=== PATIENT | male | born 1940 | race Caucasian/White ===

== ENCOUNTER 2018-02-27 11:12 | Outpatient (RCR) | payer MEDICARE, SELFPAY ==
--- NOTE | 2018-02-27 12:00 | PT.OTN ---
Current Diagnoses Dizziness and giddiness (02/27/18) Transition note: On February 20, 2018 our therapy services consisting of Speech, Occupational, and Physical Therapy transitioned from the [employer] electronic documentation system to a new [facility] [facility] electronic documentation system.?? All documentation prior to February 20 can be found under [facility] saved data. From February 20 forward all medical record documentation will be in [facility]1.
--- NOTE | 2018-02-28 17:02 | PT.OTN ---
Current Diagnoses Dizziness and giddiness (02/27/18) Physical Therapy Treatment Note PT-OP-A Visit Information Start: 02/27/18 07:31 Freq: Status: Active Protocol: Document 02/27/18 11:15 AMB (Rec: 02/28/18 17:02 AMB [email or web address]) Out-Patient Physical Therapy Visit Information Visit Information Visit Type Treatment Note Visit Note G codes 12/30 Visit Start Time 11:15 Visit Stop Time 12:00 Total Visit Minutes 45 Visit Number 3 Evaluation Information Evaluation Date 02/14/18 PT-OP-C Subjective Start: 02/27/18 07:31 Freq: Status: Active Protocol: Document 02/27/18 11:15 AMB (Rec: 02/28/18 17:02 AMB [email or web address]) OP-PT Subjective Patient Comments Patient Reported Progress Same PT-OP-Q Treatments Start: 02/27/18 07:31 Freq: Status: Active Protocol: Document 02/27/18 11:15 AMB (Rec: 02/28/18 17:02 AMB [email or web address]) Neuro Re-Education Treatment Other Activities 4 Details R Dilip Reps/Duration 8 minutes 3 Details VOR 1 Reps/Duration 7 minutes 2 Details Stride stance EO HT Reps/Duration 5 minutes 1 Details Quinn Daroff Reps/Duration 3 each side PT-OP-T Assessment and Plan Start: 02/27/18 07:31 Freq: Status: Active Protocol: Document 02/27/18 11:15 AMB (Rec: 02/28/18 17:02 AMB [email or web address]) Physical Therapy Assessment Assessment Summary Assessment Pt without nystagmus or dizziness with positional testing. Continues to have dizziness with head turns ( even in seated) and with coming up from a supine position. Continues to describe dizziness as a feeling of being lightheaded and off balance. Physical Therapy Plan Next Visit Focus/Plan Next Visit Plan Pt on hold until visit with PCP later this month. He will continue with his HEP independently until that time and then call this clinic to see if he wants to come back
--- NOTE | 2018-04-03 08:58 | PT.OPDS ---
Current Diagnoses Dizziness and giddiness (02/27/18) Provider Visit Care Team Role Provider Type Aristeo Cárdenas MD Attending Provider Physician Family Provider Primary Care Provider Specialty: Family Practice Address: [facility] [place], [address] Email: [email or web address] Discharge Summary PT-OP-C Subjective Start: 02/27/18 07:31 Freq: Status: Active Protocol: Document 02/27/18 11:15 AMB (Rec: 02/28/18 17:02 AMB [email or web address]) OP-PT Subjective Patient Comments Patient Reported Progress Same PT-OP-T Assessment and Plan Start: 02/27/18 07:31 Freq: Status: Active Protocol: Document 02/27/18 11:15 AMB (Rec: 02/28/18 17:02 AMB [email or web address]) Physical Therapy Assessment Assessment Summary Assessment Pt without nystagmus or dizziness with positional testing. Continues to have dizziness with head turns ( even in seated) and with coming up from a supine position. Continues to describe dizziness as a feeling of being lightheaded and off balance. Physical Therapy Plan Next Visit Focus/Plan Next Visit Plan Discharge, patient did not notice change with HEP. He returned to his PCP who put him on meclizine which he reports is helping. The patient was seen for 3 visits of physical therapy. He never showed nystagmus, although an accurate [place]-Hallpike position was challenging due to his decreased cervical ROM.
== END 2018-04-13 13:21 ==
LOC: PHYS 11:12
PROVIDERS: Family Provider Family Medicine; PCP Family Medicine; Visit Provider Family Medicine
DX: R42 Dizziness and giddiness (principal)
CPT/HCPCS: 97112

== ENCOUNTER 2019-02-07 15:44 | Outpatient (RCR) | payer MEDICARE, SELFPAY ==
--- NOTE | 2019-02-07 17:40 | PT.OIE ---
Current Diagnoses Unspecified abnormalities of gait and mobility (02/07/19) Dizziness and giddiness (02/07/19) Provider Visit Care Team Role Provider Type Aristeo Cárdenas MD Primary Care Provider Physician Specialty: Family Practice Address: [address] [place], [address] Email: 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 Pt reports episodes last a few seconds, only when turning his head. Pt does not complain of positional symptoms, only if he is shaking his head, turning his neck to look at something, or other actions that cause [id number] movement. Pt reports he had previously been seen at this clinic when his symptoms began one year ago, but felt like it was not helping following his second visit, and stopped coming. Since that time, pt has undergone a VNG, which was largely negative, but did uncover multifactorial disequilibrium and potential cervical vertigo. Pt is currently using six tablets of Meclizine daily to manage his symptoms. Prior Treatments and Tests VNG Treatment Goals Patient/Caregiver Goals Ptt would like to stop his dizziness with head movement Prior Functional Status Baseline Function- ADL's Independent Baseline Function- Mobility Independent Current Functional Impairments (Reported) Functional Limitations- ADL's c/o dizziness with head turns PT-OP-C Subjective Start: 02/08/19 13:13 Freq: Status: Active Protocol: Document 02/07/19 16:00 DCW (Rec: 02/08/19 13:38 DCW [id number]) Patient Questionnaires ABC- Activity Specific Balance Confidence Scale ABC Score 48.13% ABC Functional Impairment 40 to <60% Impaired (Score 41- 60) Dizziness Handicap Inventory DHI Score 48% DHI Functional Impairment 40 to 59% Impaired (Score 40- 59) PT-OP-D Balance Start: 02/08/19 13:13 Freq: Status: Active Protocol: Document 02/07/19 16:00 DCW (Rec: 02/08/19 13:38 DCW [id number]) OP-PT Balance Assessment Sitting Balance Static Sitting Balance Ability Normal Dynamic Sitting Balance Ability Normal Standing Balance Static Standing Balance Ability Good Dynamic Standing Balance Ability Fair Balance Tests CTSIB CTSIB Position 1 Mild Sway CTSIB Position 2 Fall Reaction CTSIB Position 3 Fall Reaction CTSIB Position 4 Moderate Sway CTSIB Position 5 Fall Reaction CTSIB Position 6 Fall Reaction Jaramillo Fall Scale Copyright Permission Ella JM, Ella RM, Edgar SJ. Development of a scale to identify the fall- prone patient. Can J Aging 1989;8;366-7. Cam Jaramillo (2009). Preventing patient falls. (2nd ed). [place]: Clement. PT-OP-O Vestibular Start: 02/08/19 13:13 Freq: Status: Active Protocol: Document 02/07/19 16:00 DCW (Rec: 02/08/19 13:38 DCW [id number]) Vestibular Assessment Screening Tests Vestibular Artery Screen Negative Sharp-Judie Test Negative Visual Testing Gaze Evoked Nystagmus With Fixation Negative Gaze Evoked Nystagmus Without Fixation Negative Cover/Uncover Test WNL Suraj String Test WNL DVA (Line Degradation) 5 Head Shake Negative Spontaneous Nystagmus Negative Positional Testing [place]-Hallpike Negative Left Negative Right Rolling Test Negative Left Negative Right Comments Vestibular Comments Cervicogenic Dizzingess test on rotation stool - negative PT-OP-T Assessment and Plan Start: 02/08/19 13:13 Freq: Status: Active Protocol: Document 02/07/19 16:00 DCW (Rec: 02/08/19 13:38 DCW [id number]) Physical Therapy Assessment Rehab Potential Rehabilitation Potential Fair Evaluation Complexity Number of Personal Factors/Comorbidities 1-2 Number of Body Systems Impaired 4 or More Clinical Presentation at Evaluation Unstable Impairments Impairments Balance Vestibular Assessment Summary Assessment Pt's vestibular examination was largely negative. Pt had an in-depth VNG prior to his assessment here, which was again largely negative, suggesting multifactoral imbalance and possible cervical dizziness. No cervical dizziness could be reproduced in the clinic today . Pt's only real positive test was a 5 line degradation of his DVA, however by itself, this does not say much. At the end of the session, pt was informed that although his vestibular testing was negative, he did display some concerns with his poor balance , particularly with his eyes closed or visual conflict causing an almost immediate fall reaction. Pt reports that he is not interested in working on his balance at this time, and if there is no specific treatment for his dizziness he experiences with head movement, he would prefer not to come to therapy at this time. Pt noted he would work on strengthening his legs by himself, and if he gets to the point where he feels more comfortable walking, then he will rethink about attending therapy at a later date. Pt will be discharged from skilled therapy at this time. Physical Therapy Plan Frequency and Duration Duration of Treatment 1 day Plan of Care Start Date 02/07/19 Plan of Care End Date 02/08/19 Discharge Physical Therapy Discharge Reasons Patient Request Next Visit Focus/Plan Next Note Type Discharge Summary Next Visit Plan No further PT at this time, per patient request
--- NOTE | 2019-02-07 17:45 | PT.OPPOC ---
Current Diagnoses Unspecified abnormalities of gait and mobility (02/07/19) Dizziness and giddiness (02/07/19) Provider Visit Care Team Role Provider Type Aristeo Cárdenas MD Primary Care Provider Physician Specialty: Family Practice Address: [address] [place], [address] Email: [email or web address] Fredy Howard MD Attending Provider Physician Specialty: Ear, Nose, Throat Address: [address] [place] [address] [place], [address] Email: Plan Of Care PT-OP-T Assessment and Plan Start: 02/08/19 13:13 Freq: Status: Active Protocol: Document 02/07/19 16:00 DCW (Rec: 02/08/19 13:38 DCW [id number]) Physical Therapy Assessment Rehab Potential Rehabilitation Potential Fair Evaluation Complexity Number of Personal Factors/Comorbidities 1-2 Number of Body Systems Impaired 4 or More Clinical Presentation at Evaluation Unstable Impairments Impairments Balance Vestibular Assessment Summary Assessment Pt's vestibular examination was largely negative. Pt had an in-depth VNG prior to his assessment here, which was again largely negative, suggesting multifactoral imbalance and possible cervical dizziness. No cervical dizziness could be reproduced in the clinic today . Pt's only real positive test was a 5 line degradation of his DVA, however by itself, this does not say much. At the end of the session, pt was informed that although his vestibular testing was negative, he did display some concerns with his poor balance , particularly with his eyes closed or visual conflict causing an almost immediate fall reaction. Pt reports that he is not interested in working on his balance at this time, and if there is no specific treatment for his dizziness he experiences with head movement, he would prefer not to come to therapy at this time. Pt noted he would work on strengthening his legs by himself, and if he gets to the point where he feels more comfortable walking, then he will rethink about attending therapy at a later date. Pt will be discharged from skilled therapy at this time. Physical Therapy Plan Frequency and Duration Duration of Treatment 1 day Plan of Care Start Date 02/07/19 Plan of Care End Date 02/08/19 Discharge Physical Therapy Discharge Reasons Patient Request Next Visit Focus/Plan Next Note Type Discharge Summary Next Visit Plan No further PT at this time, per patient request Plan of Care Dates Plan of Care Start Date 02/07/19 Plan of Care End Date 02/08/19 Please Sign and Return: I have reviewed this Plan of Care and certify that the skilled therapy services above are required to meet the patient?s needs. Physician Signature Date Printed Name and Credentials Clinical Instructor Signature Printed Name and Credentials
--- NOTE | 2019-02-07 17:45 | PT.OPDS ---
Current Diagnoses Unspecified abnormalities of gait and mobility (02/07/19) Dizziness and giddiness (02/07/19) Provider Visit Care Team Role Provider Type Aristeo Cárdenas MD Primary Care Provider Physician Specialty: Family Practice Address: [address] [place], [address] Email: [email or web address] Fredy Howard MD Attending Provider Physician Specialty: Ear, Nose, Throat Address: [address] [place] [address] [place], [address] Email: Visit Number Visit Number 1 Discharge Summary PT-OP-B Current Condition Start: 02/08/19 13:13 Freq: Status: Active Protocol: Document 02/07/19 16:00 DCW (Rec: 02/08/19 13:38 DCW [id number]) Current Condition History of Current Condition Onset Date one year Current Complaints imbalance, dizziness History of Current Condition Pt is a 78 year old male complaining of a one 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 Pt reports episodes last a few seconds, only when turning his head. Pt does not complain of positional symptoms, only if he is shaking his head, turning his neck to look at something, or other actions that cause jrhh-[id number] movement. Pt reports he had previously been seen at this clinic when his symptoms began one year ago, but felt like it was not helping following his second visit, and stopped coming. Since that time, pt has undergone a VNG, which was largely negative, but did uncover multifactorial disequilibrium and potential cervical vertigo. Pt is currently using six tablets of Meclizine daily to manage his symptoms. Prior Treatments and Tests VNG Treatment Goals Patient/Caregiver Goals Ptt would like to stop his dizziness with head movement Prior Functional Status Baseline Function- ADL's Independent Baseline Function- Mobility Independent Current Functional Impairments (Reported) Functional Limitations- ADL's c/o dizziness with head turns PT-OP-C Subjective Start: 02/08/19 13:13 Freq: Status: Active Protocol: Document 02/07/19 16:00 DCW (Rec: 02/08/19 13:38 DCW [id number]) Patient Questionnaires ABC- Activity Specific Balance Confidence Scale ABC Score 48.13% ABC Functional Impairment 40 to <60% Impaired (Score 41- 60) Dizziness Handicap Inventory DHI Score 48% DHI Functional Impairment 40 to 59% Impaired (Score 40- 59) PT-OP-D Balance Start: 02/08/19 13:13 Freq: Status: Active Protocol: Document 02/07/19 16:00 DCW (Rec: 02/08/19 13:38 DCW [id number]) OP-PT Balance Assessment Sitting Balance Static Sitting Balance Ability Normal Dynamic Sitting Balance Ability Normal Standing Balance Static Standing Balance Ability Good Dynamic Standing Balance Ability Fair Balance Tests CTSIB CTSIB Position 1 Mild Sway CTSIB Position 2 Fall Reaction CTSIB Position 3 Fall Reaction CTSIB Position 4 Moderate Sway CTSIB Position 5 Fall Reaction CTSIB Position 6 Fall Reaction Jaramillo Fall Scale Copyright Permission Ella ROMERO, Ella RM, Edgar SJ. Development of a scale to identify the fall- prone patient. Can J Aging 1989;8;366-7. Cam Jaramillo (2009). Preventing patient falls. (2nd ed). [place]: Clement. PT-OP-O Vestibular Start: 02/08/19 13:13 Freq: Status: Active Protocol: Document 02/07/19 16:00 DCW (Rec: 02/08/19 13:38 DCW [id number]) Vestibular Assessment Screening Tests Vestibular Artery Screen Negative Sharp-Judie Test Negative Visual Testing Gaze Evoked Nystagmus With Fixation Negative Gaze Evoked Nystagmus Without Fixation Negative Cover/Uncover Test WNL Suraj String Test WNL DVA (Line Degradation) 5 Head Shake Negative Spontaneous Nystagmus Negative Positional Testing [place]-Hallpike Negative Left Negative Right Rolling Test Negative Left Negative Right Comments Vestibular Comments Cervicogenic Dizzingess test on rotation stool - negative PT-OP-T Assessment and Plan Start: 02/08/19 13:13 Freq: Status: Active Protocol: Document 02/07/19 16:00 DCW (Rec: 02/08/19 13:38 DCW [id number]) Physical Therapy Assessment Rehab Potential Rehabilitation Potential Fair Evaluation Complexity Number of Personal Factors/Comorbidities 1-2 Number of Body Systems Impaired 4 or More Clinical Presentation at Evaluation Unstable Impairments Impairments Balance Vestibular Assessment Summary Assessment Pt's vestibular examination was largely negative. Pt had an in-depth VNG prior to his assessment here, which was again largely negative, suggesting multifactoral imbalance and possible cervical dizziness. No cervical dizziness could be reproduced in the clinic today . Pt's only real positive test was a 5 line degradation of his DVA, however by itself, this does not say much. At the end of the session, pt was informed that although his vestibular testing was negative, he did display some concerns with his poor balance , particularly with his eyes closed or visual conflict causing an almost immediate fall reaction. Pt reports that he is not interested in working on his balance at this time, and if there is no specific treatment for his dizziness he experiences with head movement, he would prefer not to come to therapy at this time. Pt noted he would work on strengthening his legs by himself, and if he gets to the point where he feels more comfortable walking, then he will rethink about attending therapy at a later date. Pt will be discharged from skilled therapy at this time. Physical Therapy Plan Frequency and Duration Duration of Treatment 1 day Plan of Care Start Date 02/07/19 Plan of Care End Date 02/08/19 Discharge Physical Therapy Discharge Reasons Patient Request Next Visit Focus/Plan Next Note Type Discharge Summary Next Visit Plan No further PT at this time, per patient request
== END 2019-02-07 16:35 ==
LOC: PHYS 15:44
PROVIDERS: PCP Family Medicine; Visit Provider Otolaryngology
DX: R42 Dizziness and giddiness (principal); R26.9 Unspecified abnormalities of gait and mobility
CPT/HCPCS: 97162

== ENCOUNTER 2019-05-24 12:07 | Day surgery (SDC) | payer MEDICARE, SELFPAY ==
[2019-05-24] VITALS (24 sets, daily range): BP systolic 85–119; BP diastolic 47–74; PULSE 51–578; RESP 11–20; TEMP 36–36.5; O2SAT 93–100; BMI 30.5
--- NOTE | 2019-05-24 | PATH_ITS ---
[facility] Accession Number: [id number] . 01 Material submitted: . colon - CECAL POLYPS X TWO . 02 Diagnosis: Cecum, Polyps: Fragment of tubular adenoma and fragments of colonic mucosa with no diagnostic abnormality (two polyps removed). [facility]/05/27/2019 . 02 Electronically signed: . Burke Curry MD, PhD, Pathologist NPI- [id number] . 01 Gross description: . CECAL POLYPS X TWO: Received in formalin are 3 fragment(s) of prabhakar, soft tissue measuring 0.1 x 0.1 x 0.1 cm to 0.4 x 0.2 x 0.2 cm which is entirely submitted and submitted entirely in 1 cassette(s) /DMC /DMC . 02 Pathologist provided ICD-10: D12.0 . 02 CPT . 214291 Performed at: 01 [facility] [address], [place], [place] [id number] MD Juan M Culp MD Phone: [phone] Performed at: 02 [facility] [address] [place], [place] [id number] MD Laurie Lima MD Phone: [phone]
[2019-05-24] MEDS: HYOSCYAMINE 0.125 MG TABLET PO (12:33)
[2019-05-24] MEDS: SODIUM CHLORIDE 0.9% 1,000 ML 200 ML IV ×4 (12:45→15:32)
--- NOTE | 2019-05-24 12:55 | P.OP.ENDO_ITS ---
Operative Date/Time/Diagnoses Date of procedure: 05/24/19 Time of procedure: 12:53 Pre-op diagnosis: 1. Screening for colon cancer 2. Microscopic colitis Post-op diagnosis: same Procedure & Clinicians Study performed: Colonoscopy Same procedure as scheduled: Yes Indications: 1. Screening for colon cancer 2. Microscopic colitis Surgeon: Sonali Nelson Procedure Notes SCOAP/Timeout: Completed Procedure in detail: ENDOSCOPIST: Sonali Nelson MD Anesthesiologist: Dr. Hart PROCEDURE: Colonoscopy with biopsy INDICATIONS: 1. Screening for colon cancer 2. Microscopic colitis MEDICATION: Levsin 0.125 mg sublingual, 1 mcg ephedrine, and incremental doses of Versed and fentanyl until appropriate level sedation achieved. ASA CLASS: 3 CECAL WITHDRAWAL TIME: 7 minutes COMPLICATIONS: None. EXTENT OF PROCEDURE: Cecum. QUALITY OF PREP: Good with portions of liquid stool. PROCEDURE: Prior to insertion of the colonoscope, 2 mg of Versed and 50 mcg of fentanyl were administered, blood pressure became hypotensive, 90s/40s, heart rate in the 50s. 1 L of normal saline bolus was administered with no improvement. Patient was determined to be hypovolemic with dehydration and was taken to PACU and administered another 2 L of fluid with no improvement in blood pressure. Dr. Hart was then consulted and he kindly agreed to consult on the case to provide anesthesia in the setting of hypovolemic hypotension and cardiac risk factors. Preprocedure blood pressure was 110/48. 1 mg of ephedrine was administered with good effect. 4 mg of Versed Versed and 400 mcg of fentanyl were then used to a chieve adequate anesthesia. A digital rectal examination was accomplished with circumferential palpation of the distal rectal mucosa without significant findings being noted. The high-definition colonoscope was passed into the rectum in the usual fashion and advanced over to the cecum without difficulty. The ileocecal valve, appendiceal stoma, and medial wall were inspected and two, 2-4 mm polyps were seen and removed with cold biopsy forceps. ASCENDING COLON: As the colonoscope was withdrawn, care was taken to expose and inspect the haustral folds and no abnormalities were seen. HEPATIC FLEXURE: Normal no polyps, diverticula or other abnormalities. TRANSVERSE COLON: Normal no polyps, diverticula or other abnormalities. DESCENDING COLON: Normal no polyps, diverticula or other abnormalities. SIGMOID COLON: Normal no polyps, diverticula or other abnormalities. RECTUM: Normal. J maneuver was produced. There was no significant perianal disease. The J maneuver was broken. The remainder of the rectum was inspected and there was no external hemorrhoid disease. The scope was withdrawn. IMPRESSION: 1. Cecal polyp x2, 2-4 mm, removed cold biopsy forceps PLAN: 1. Follow-up in clinic status post pathology results. The possibility of a missed lesion including a malignancy has been discussed with the patient previously. Potential alarm symptoms have been discussed and should be reported immediately. Findings: polyp Specimen(s): other Complications: none Impression: Cecal polyp x2, 2 to 4 mm Recommendations: Will call with biopsy results Follow up: weeks (2) Disposition: PACU
--- NOTE | 2019-05-24 13:02 | SUR.OPER ---
BILATERAL HEARING AIDS TO . GLASSES IN LABELED BAG TO PACU WITH PATIENT
--- NOTE | 2019-05-24 13:03 | SUR.OPER ---
PROCEDURE START DELAY PER DR. JOY. SHE ORDERED A BOLUS OF 500 ML NACL INFUSED PER IV.
--- NOTE | 2019-05-24 13:24 | SUR.PHASEI ---
Dr. Nelson here, wants IV fluids given to increase blood pressure to admitting baseline. She wants fluids continuous, wide open and then will return patient to do the procedure. patient drowsy, responsive to voice, spoke to him and explained the plan.
[2019-05-24] MEDS: fentaNYL 250 MCG/5 ML INJ IV (13:30)
[2019-05-24] MEDS: MIDAZOLAM 5 MG/5 ML VIAL IV (13:30)
--- NOTE | 2019-05-24 13:40 | SUR.PHASEI ---
report given to Karen Truong RN. patient drowsy, responds readily to voice, understands that procedure is delayed. IV patent, VSS, lungs clear.
--- NOTE | 2019-05-24 13:44 | SUR.OPER ---
DR. JOY DECIDED AT 1315 TO TRANSFER PATIENT TO PACU DUE TO LOW BLOOD PRESSURE. PATIENT TO PACU AT 1322 IV NACL INFUSING.
--- NOTE | 2019-05-24 14:39 | SUR.PHASEII ---
1425 Returned to patient care and was directed to hang another liter of fluid w/pressure bag by the doctor. Patient in OPD.Denied light-headedness with HOB elevated. Oriented, no discomfort. See VS.
--- NOTE | 2019-05-24 14:43 | SUR.PHASEII ---
Lungs clear, resp unlabored. Pt. requested a urinal.
--- NOTE | 2019-05-24 15:00 | SUR.PHASEII ---
to bedside, Patient awake and oriented, talking with . Glasses given to .
--- NOTE | 2019-05-24 15:12 | SUR.PHASEII ---
Waiting for anesthesia to arrive and do procedure under general. Pt. stable.
--- NOTE | 2019-05-24 15:27 | SUR.OPER ---
INTO ENDO ROOM AT 1524. ANESTHESIA START TIME AT 1524.PHYSICIAN DETERMINED THAT MAC SEDATION IS NEEDED TO PERFORM THIS PROCEDURE.
--- NOTE | 2019-05-24 15:40 | SUR.OPER ---
PROCEDURE BEGAN AT 1530.
--- NOTE | 2019-05-24 15:52 | SUR.OPER ---
PROCEDURE END AT 1550. PATIENT OUT OF ROOM AT 1553 TO PACU.
--- NOTE | 2019-05-24 16:12 | SUR.PHASEI ---
1609 Dr. Sawant here to speak with patient, patient too sleepy, she went to talk with his . 1611 Dr. Briceno checked on patient.
--- NOTE | 2019-05-24 16:30 | SUR.PHASEI ---
aroused to voice, denies discomfort/light-headedness. HOB raised, juice given. States that he had a nice nap.
--- NOTE | 2019-05-24 17:10 | SUR.PHASEI ---
1650 to bedside, reviewed instructions with her and patient. Stable, voided, remains drowsy.
== END 2019-05-24 17:28 | disposition home or self-care (01) ==
LOC: ENDO 12:10
PROVIDERS: PCP Family Medicine; Visit Provider Student in an Organized Health Care Education/Training Program
PROC: 0DJD8ZZ Inspection of Lower Intestinal Tract, Via Natural or Artificial Opening Endoscopic (ICD-10-PCS; CPT 45378; principal; 2019-05-24 13:00)
DX: Z12.11 Encounter for screening for malignant neoplasm of colon (principal); K52.839 Microscopic colitis, unspecified; D12.0 Benign neoplasm of cecum
CPT/HCPCS: 45380; 88305; J2250; J3010

== ENCOUNTER → 2019-06-26 09:36 | Outpatient (CLI) | payer MEDICARE, SELFPAY ==
--- NOTE | 2019-06-26 | DI.MRI.S_ITS ---
PROCEDURE: MR HEAD/BRAIN WO/W CON INDICATIONS: Dizziness TECHNIQUE: Noncontrast axial T1 spin echo, axial T2 fast spin echo, sagittal and axial FLAIR, coronal T2 fast spin echo, axial gradient echo, axial diffusion and ADC through the brain. After the administration of contrast, axial and coronal 3D VIBE or T1 spin echo with fat saturation through the brain. COMPARISON: MR, ANGIO HEAD W/O CONTRAST, 11/13/2012, 18:08. FINDINGS: Image quality: Excellent. CSF Spaces: Basal cisterns are patent. No extra-axial fluid collections. Ventricles are normal in size and shape. Brain: No midline shift. No intracranial bleeds or masses. No abnormal intracranial enhancement. The brainstem appears normal. Diffusion-weighted images demonstrate no acute ischemic insults. No chronic ischemic insults. Normal intravascular flow voids are present. Skull and face: Calvarial marrow is normal in signal. Orbits appear normal. Sinuses: Sinuses and mastoids appear clear. IMPRESSION: Moderate microvascular atherosclerotic change in the deep white matter of each hemisphere, with associated mild bilateral brain parenchymal atrophy. No mass or hemorrhage is seen. No evidence of prior stroke is found. Dictated by: Frederick Swain M.D. on 06/26/2019 at 12:13 Approved by: Frederick Swain M.D. on 06/26/2019 at 12:15
== END ==
PROVIDERS: PCP Family Medicine; Visit Provider Family Medicine
DX: R42 Dizziness and giddiness (principal)
CPT/HCPCS: 70553; A9579

== ENCOUNTER → 2019-08-12 10:39 | Outpatient (CLI) | payer MEDICARE, SELFPAY ==
--- NOTE | 2019-08-12 | DI.RAD.S_ITS ---
PROCEDURE: XR CHEST 2V INDICATIONS: dyspnea TECHNIQUE: 2 views of the chest were acquired. COMPARISON: [facility], , CHEST 2 VIEW, 01/16/2018, 10:14. FINDINGS: Surgical changes and devices: The median sternotomy wires appear intact. Lungs and pleura: Left greater than right blunting of the costophrenic angles compatible with small pleural effusions. Diffuse interstitial prominence and minimal vascular congestion. No focal consolidation or pneumothorax. Mediastinum: The cardiomediastinal contours remain stable with enlargement of the cardiac silhouette. Bones and chest wall: No suspicious bony abnormalities. Soft tissues appear unremarkable. IMPRESSION: Findings suggestive of early pulmonary edema. Concurrent infectious/inflammatory process not excluded if clinically appropriate. No focal consolidation. Dictated by: Flo Alonso M.D. on 08/12/2019 at 12:48 Approved by: Flo Alonso M.D. on 08/12/2019 at 12:50
== END ==
PROVIDERS: PCP Family Medicine; Visit Provider Family Medicine
DX: R06.00 Dyspnea, unspecified (principal)
CPT/HCPCS: 71046

== ENCOUNTER → 2021-04-30 17:27 | Outpatient (CLI) | payer MEDICARE, OTHER, SELFPAY ==
--- NOTE | 2021-04-30 | DI.MRI.S_ITS ---
PROCEDURE: MR LUMBAR SPINE WO CON INDICATIONS: Spinal stenosis, lumbar region with neurogenic cla TECHNIQUE: Noncontrast sagittal T1 spin echo and T2 fast echo, sagittal STIR, axial T1 and T2 fast spin echo through the lumbar spine. In cases with scoliosis, additional coronal T2 fast spin echo may be performed. COMPARISON: [facility], MR, L-SPINE WITHOUT CONTRAST, 06/23/2009, 15:53. FINDINGS: Image quality: Excellent. Alignment and Curvature: There is normal bony alignment. Bone Marrow: Marrow is of normal overall signal. No acute vertebral body compression fractures. Spinal Cord: Conus medullaris terminates at the L1 level. Visualized cord demonstrates normal signal and size. Paraspinous Soft Tissues: No paravertebral masses. Foci of hyperintense T2 signal are noted within the kidneys most suggestive of simple cysts. Discs: Severe desiccation is present L1-L2, L2-3, L4-5, moderate to severe throughout the remainder of the lumbar spine. T12-L1: Mild disc bulge with moderate to severe spinal stenosis. Minimal left foraminal narrowing with facet and ligamentum flavum hypertrophy. L1-L2: Mild disc bulge with posterior central protrusion. Moderate to severe spinal stenosis is present. Moderate to severe left and moderate right foraminal narrowing with facet and ligamentum flavum hypertrophy. L2-L3: Mild disc bulge with mild spinal stenosis. Severe narrowing through the subarticular recess on the left with nerve root deformity. Moderate to severe right foraminal narrowing. Facet and ligamentum flavum hypertrophy are present. L3-L4: Mild disc bulge with mild spinal stenosis. Moderate to severe bilateral foraminal narrowing with facet and ligamentum flavum hypertrophy. Mild epidural lipomatosis is present. L4-L5: Mild disc bulge with mild to moderate spinal stenosis. Severe left foraminal narrowing with facet and ligamentum flavum hypertrophy. L5-S1: Mild disc bulge with mild spinal stenosis. Severe bilateral foraminal narrowing with nerve root flattening bilaterally, left greater than right. Facet hypertrophy is present. IMPRESSION: 1. Multilevel disc bulges. 2. Multilevel spinal stenosis, most notable at L4-5 secondary to disc bulge with contributing affective facet/ligamentum flavum arthropathy. 3. Multilevel overall moderate to severe foraminal narrowing most significant at L2-3 and L5-S1 with flattening of the exiting L5 nerve roots most notable at L5-S1. Foraminal narrowing is predominantly secondary to facet arthropathy. Dictated by: Lien Alvarez M.D. on 05/03/2021 at 11:37 Approved by: Lien Alvarez M.D. on 05/03/2021 at 11:51
== END ==
PROVIDERS: PCP Family Medicine; Referring Provider Psychiatry & Neurology Neurology; Visit Provider Psychiatry & Neurology Neurology
DX: M48.062 Spinal stenosis, lumbar region with neurogenic claudication (principal); M48.07 Spinal stenosis, lumbosacral region; M47.816 Spondylosis without myelopathy or radiculopathy, lumbar region; M51.26 Other intervertebral disc displacement, lumbar region
CPT/HCPCS: 72148

== ENCOUNTER 2022-01-28 22:01 | Inpatient (IN) | payer MEDICARE, OTHER, SELFPAY ==
[2022-01-28] VITALS (17 sets, daily range): BP systolic 95–109; BP diastolic 50–60; PULSE 32–211; RESP 14–41; TEMP 36.9; O2SAT 92–99; BMI 31.4
--- NOTE | 2022-01-28 22:07 | DI.RAD.S_ITS ---
PROCEDURE: XR CHEST 1V INDICATIONS: slow HR, fall TECHNIQUE: One view of the chest was acquired. COMPARISON: [facility], CT, CT CHEST WO CON, 01/28/2022, 23:03. [facility], CR, XR CHEST 2V, 08/12/2019, 10:51. FINDINGS: Surgical changes and devices: Postsurgical changes are redemonstrated in the mediastinum. Lungs and pleura: There is a moderate left pleural effusion with left basilar opacities consistent with compressive atelectasis or consolidation. No definite pneumothorax. Right lung demonstrates medial opacities inferiorly suggestive atelectasis. Mediastinum: Heart size is enlarged. Bones and chest wall: No displaced fractures identified. No suspicious bony lesions. Overlying soft tissues appear unremarkable. IMPRESSION: 1. Moderate left pleural effusion with left basilar consolidation or atelectasis. 2. No definite pneumothorax. 3. No discrete displaced fractures. 4. Medial right basilar opacities likely represent atelectasis. Dictated by: Juan M Gtz M.D. on 01/28/2022 at 23:19 Approved by: Juan M Gtz M.D. on 01/28/2022 at 23:22
--- NOTE | 2022-01-28 22:09 | ED_ITS ---
HPI - Arrhythmia/Palpitations General Chief Complaint: Arrhythmia/Palpitations Stated Complaint: slow heart rate Time Seen by Provider: 01/28/22 22:07 Source: patient Mode of arrival: Ambulatory Limitations: no limitations History of Present Illness HPI narrative: This is a 81-year-old male who comes emergency department with complaint of ground level fall. Patient states he was using his walker when he just sort of started to give way got stuck between 2 objects furniture. Patient's ABX were himself down to the ground and did have a true fall. EMS was contacted for lift assist and noted patient's heart rate was in the 30s with a low at 28. Systolic pressure was around 106. Patient family states that he had stroke-like symptoms about 2 weeks. Unclear if he was seen for this. He is at his normal baseline mentation according to patient and family. Patient denies any pain, he denies headache, no neck or back pain, no chest pain or shortness of breath. No lightheadedness. No passing out. He denies any nausea or vomiting. He denies any new GI or urinary symptoms. He is unsure if he has been told he has a low heart rate in the past. He is on amlodipine and metoprolol, rosuvastatin called tolterodine, Lasix, enalapril and aspirin 81 mg. Patient has had a prior CABG. He does state that he is full code if his heart were to stop. He is a former smoker. His primary care is Dr. Swartz lives at home independently with his . Related Data Home Medications Medication Instructions Recorded Confirmed Enalapril Maleate (Vasotec) 20 mg PO BID #0 12/31/09 12/28/21 Loperamide Hydrochloride 2 mg PO PRN #0 12/31/09 12/28/21 (Loperamide) Metoprolol Tartrate (Lopressor) 100 mg PO BID #0 12/31/09 12/28/21 [CIALIS] 20 mg PO PRN #0 12/31/09 12/28/21 aspirin 81 mg tablet,delayed 162 mg PO DAILY 05/24/19 12/28/21 release (Aspir-) amlodipine 10 mg tablet 10 mg PO DAILY 08/28/20 12/28/21 furosemide 20 mg tablet (Lasix) 10 mg PO QAM 08/28/20 12/28/21 loratadine 10 mg capsule (Claritin 10 mg PO DAILY 08/28/20 12/28/21 Liqui-Gel) omeprazole 10 mg capsule,delayed 10 mg PO DAILY 08/28/20 12/28/21 release rosuvastatin 40 mg sprinkle capsule 40 mg PO DAILY 08/28/20 12/28/21 Previous Rx's Medication Instructions Recorded tolterodine 4 mg capsule,extended 4 mg PO DAILY #90 cap 08/31/21 release 24 hr ciprofloxacin HCl 500 mg tablet 500 mg PO BID #6 tab 12/24/21 Allergies Allergy/AdvReac Type Severity Reaction Status Date / Time No Known Drug Allergies Allergy Verified 12/28/21 13:39 Review of Systems Review of Systems ROS Unobtainable: All systems reviewed & are unremarkable except as noted in HPI and below Patient History Medical History Arthritis BPH w urinary obs/LUTS Chest pain Elevated PSA High blood pressure Incontinence of urine Osteoarthritis Surgical History Hx of appendectomy Previous back surgery Total knee replacement status Family History Father Stroke Coronary artery disease Diabetes mellitus Father Cancer Eczema Social History marital status: number of children: 4 household members: spouse Smoking Status: Former smoker alcohol intake: current caffeine: Yes Smoking Status: Former smoker Exam Narrative Exam Narrative: GEN: Patient appears in mild distress. HEAD: No evidence of trauma, no raccoon/Escamilla sign. NECK: Nontender, painless range of motion, trachea midline Negative Nexus criteria, there is no midline line tenderness, distracting injury, altered mental status, neuro deficit, recent EtOH. EYES: PERRLA, EOMI ENT: External inspection normal, trachea is midline, TM's are normal no hemotypanum, Nares are clear, no septal hematoma, no dental or oral injury, airway is normal and with normal occlusion, No bony tenderness RESP: Chest is nontender and has symmetric movement, no ecchymosis, breath sounds are decreased on left, no crackles, wheezes or rales CVS: Bradycardic, S1-S2, no murmur noted, No JVD. Patient has 2+ edema b ilateral lower extremities. ABG/GI: Nontender, soft, normal bowel sounds, no distention, no organomegaly, pelvic rock is negativ NEURO: Oriented AOx3, neuro is grossly intact, sensation and motor is normal all 4 extremities moving, cranial nerves II through XII are intact, GCS is 15 PSYCH: Normal mood and affect SKIN: Intact, warm and dry, no crepitus and without decubitus BACK: No CVA tenderness, no vertebral tenderness, no step-off's, no crepitus EXT: Atraumatic, patient has bilateral lower extremity edema 2+. Full range of motion of upper and lower extremities. Nontender. Initial Vital Signs Initial Vital Signs: Vital Signs Pulse Rate 42 L 01/28/22 22:06 Respiratory Rate 41 H 01/28/22 22:06 Pulse Oximetry 97 01/28/22 22:06 Scores GCS Al coma scale eye opening: Spontaneous Raymond coma scale verbal response: Orientated Raymond coma scale motor response: Obey commands Al coma scale total score: 15 Course Orders Ordered: ED Orders 01/28/22 22:07 XR chest 1V Stat EKG-12 Lead Stat 01/28/22 22:25 BNP [NT-proBNP (BNP-Adult 18+)] Stat Basic Metabolic Panel Stat Complete Blood Count AUTO DIFF Stat Magnesium Stat Partial Thromboplastin Time Stat Prothrombin Time INR Stat Thyroid Stimulating Hormone Stat Troponin & CK Cardiac Panel Stat 01/28/22 22:45 COVID19 -Nasal RAPID/Pre-Proc Stat 01/28/22 22:55 CT chest wo con Stat Sodium Chloride (Normal Saline 0.9%) 1,000 mls @ 150 mls/hr IV CONT GEORGETTE Last Admin: 01/28/22 22:40 Dose: 150 mls/hr Documented by: TERRENCE Discontinued Medications Atropine Sulfate (Atropine 1 Mg/10 Ml Syringe) 0.5 mg IV NOW ONE Stop: 01/28/22 22:17 Last Admin: 01/28/22 22:25 Dose: 0.5 mg Documented by: TERRENCE Consultations Consultation #1: Dr. Dillon, cardiology. Discussed patient appears to have a ventricular rhythm consistently in the 30s. Patient does not have known cardiac arrhythmias. Electrolytes appear appropriate, TSH is pending. She recommends holding beta- emely, make sure TSH has been ordered which is currently pending Dr. Cobos is not available until Monday in terms of electrophysiology so if needed a pacemaker emergently would need to be transferred elsewhere or could wait until Monday. Time: 23:37 Consultation #2: Dr. Styles, accepts for observation. Discussed difficult to appreciate if patient has a third-degree heart block or if this could be medication unable to truly evaluate secondary to artifact on EKGs we have tried multiple ways to make this go away. Recommendations from Cardiology that EP is not available at [facility] until Monday so if patient needs emergent transfer would be to [place] or the [facility]. Patient is full code. TSH is elevated, BNP is elevated but no clear electrolyte abnormalities. He is on metoprolol and amlodipine which could potentially be contributing. Vital Signs Vital signs: Vital Signs - 8 hr 01/28/22 22:06 01/28/22 22:10 01/28/22 22:15 Temperature Pulse Rate 42 L 35 L 34 L Respiratory Rate 41 H Blood Pressure Pulse Oximetry 97 98 98 01/28/22 22:20 01/28/22 22:25 01/28/22 22:26 Temperature 98.4 F Pulse Rate 33 L 38 L 84 Respiratory Rate 16 Blood Pressure 109/53 L 109/53 L Pulse Oximetry 96 99 99 01/28/22 22:30 01/28/22 22:31 01/28/22 22:36 Temperature Pulse Rate 40 L 36 L 34 L Respiratory Rate 16 16 18 Blood Pressure 95/50 L 108/54 L Pulse Oximetry 94 93 95 01/28/22 22:41 01/28/22 22:46 01/28/22 22:51 Temperature Pulse Rate 34 L 34 L 211 H Respiratory Rate 32 H 33 H 31 H Blood Pressure 109/52 L 108/55 L 104/52 L Pulse Oximetry 95 97 96 01/28/22 22:56 01/28/22 23:08 01/28/22 23:22 Temperature Pulse Rate 34 L 34 L 33 L Respiratory Rate 14 Blood Pressure 103/60 108/51 L Pulse Oximetry 96 96 93 01/28/22 23:30 01/28/22 23:46 01/29/22 00:00 Temperature Pulse Rate 35 L 32 L 50 L Respiratory Rate 16 19 16 Blood Pressure 108/56 L 107/54 L Pulse Oximetry 92 92 93 01/29/22 00:01 01/29/22 00:30 Temperature Pulse Rate 35 L 34 L Respiratory Rate 17 19 Blood Pressure 111/56 L Pulse Oximetry 94 93 MDM - Arrhythmia/Palpitations Lab Data Result diagrams: 01/28/22 22:25 01/28/22 22:25 Labs: Lab Results 01/28/22 01/28/22 01/28/22 Range/Units 22:25 22:25 22:25 WBC 7.1 (4.5-11.0) X10^3/uL RBC 3.47 L (4.5-5.9) X10^6/uL Hgb 12.2 L (13.5-17.5) g/dL Hct 36.2 L (41-53) % MCV 104.3 H (80-100) fL MCH 35.2 H (26-34) PG MCHC 33.8 (30-36) % RDW 16.4 H (11.6-14.8) % Plt Count 129 L (150-400) X10^3/uL Neut % (Auto) 73.3 (50-75) % Lymph % (Auto) 14.6 L (25-40) % [place] % (Auto) 10.4 (3-14) % Eos % (Auto) 1.2 L (2-4) % Baso % (Auto) 0.5 (0-2) % Neut # (Auto) 5200 (8507-6894) /uL Lymph # (Auto) 1000 L (5869-4788) /uL [place] # (Auto) 700 (0-900) /uL Eos # (Auto) 100 (0-450) /uL Baso # (Auto) 0 (0-100) /uL PT 13.0 H (10.1-12.7) SECONDS INR 1.2 (0.9-1.3) APTT 38 H (26.4-36.2) SECONDS Sodium 139 (137-145) mmol/L Potassium 5.1 (3.4-5.1) mmol/L Chloride 106 (98-107) mmol/L Carbon Dioxide 25 (22-32) mmol/L BUN 47 H (9-20) mg/dL Creatinine 2.48 H (0.66-1.25) mg/dL Estimated GFR 25.1 L (>60) mL/min BUN/Creatinine Ratio 19.0 (6-22) Glucose 133 H (80-110) mg/dL Calcium 8.9 (8.4-10.2) mg/dL Magnesium 2.4 H (1.6-2.3) mg/dL Total Creatine Kinase 248 H (55-170) U/L CK-MB (CK-2) 13.00 H (<2.37) ng/mL CK-MB (CK-2) Rel Index 5.2 H (1.5-5.0) % Troponin I < 0.012 (0.01-0.034) ng/mL NT-Pro-B Natriuret Pep (<450) pg/mL TSH (0.47-4.68) uIU/mL Free T4 (0.78-2.19) ng/dL SARS-CoV-2 (PCR) (Negative) 01/28/22 01/28/22 01/28/22 Range/Units 22:25 22:25 22:35 WBC (4.5-11.0) X10^3/uL RBC (4.5-5.9) X10^6/uL Hgb (13.5-17.5) g/dL Hct (41-53) % MCV (80-100) fL MCH (26-34) PG MCHC (30-36) % RDW (11.6-14.8) % Plt Count (150-400) X10^3/uL Neut % (Auto) (50-75) % Lymph % (Auto) (25-40) % [place] % (Auto) (3-14) % Eos % (Auto) (2-4) % Baso % (Auto) (0-2) % Neut # (Auto) (9133-6695) /uL Lymph # (Auto) (4996-8002) /uL [place] # (Auto) (0-900) /uL Eos # (Auto) (0-450) /uL Baso # (Auto) (0-100) /uL PT (10.1-12.7) SECONDS INR (0.9-1.3) APTT (26.4-36.2) SECONDS Sodium (137-145) mmol/L Potassium (3.4-5.1) mmol/L Chloride (98-107) mmol/L Carbon Dioxide (22-32) mmol/L BUN (9-20) mg/dL Creatinine (0.66-1.25) mg/dL Estimated GFR (>60) mL/min BUN/Creatinine Ratio (6-22) Glucose (80-110) mg/dL Calcium (8.4-10.2) mg/dL Magnesium (1.6-2.3) mg/dL Total Creatine Kinase (55-170) U/L CK-MB (CK-2) (<2.37) ng/mL CK-MB (CK-2) Rel Index (1.5-5.0) % Troponin I (0.01-0.034) ng/mL NT-Pro-B Natriuret Pep 2950 H (<450) pg/mL TSH 5.19 H (0.47-4.68) uIU/mL Free T4 1.40 (0.78-2.19) ng/dL SARS-CoV-2 (PCR) (Negative) 01/28/22 Range/Units 22:45 WBC (4.5-11.0) X10^3/uL RBC (4.5-5.9) X10^6/uL Hgb (13.5-17.5) g/dL Hct (41-53) % MCV (80-100) fL MCH (26-34) PG MCHC (30-36) % RDW (11.6-14.8) % Plt Count (150-400) X10^3/uL Neut % (Auto) (50-75) % Lymph % (Auto) (25-40) % [place] % (Auto) (3-14) % Eos % (Auto) (2-4) % Baso % (Auto) (0-2) % Neut # (Auto) (0980-9112) /uL Lymph # (Auto) (5585-4524) /uL [place] # (Auto) (0-900) /uL Eos # (Auto) (0-450) /uL Baso # (Auto) (0-100) /uL PT (10.1-12.7) SECONDS INR (0.9-1.3) APTT (26.4-36.2) SECONDS Sodium (137-145) mmol/L Potassium (3.4-5.1) mmol/L Chloride (98-107) mmol/L Carbon Dioxide (22-32) mmol/L BUN (9-20) mg/dL Creatinine (0.66-1.25) mg/dL Estimated GFR (>60) mL/min BUN/Creatinine Ratio (6-22) Glucose (80-110) mg/dL Calcium (8.4-10.2) mg/dL Magnesium (1.6-2.3) mg/dL Total Creatine Kinase (55-170) U/L CK-MB (CK-2) (<2.37) ng/mL CK-MB (CK-2) Rel Index (1.5-5.0) % Troponin I (0.01-0.034) ng/mL NT-Pro-B Natriuret Pep (<450) pg/mL TSH (0.47-4.68) uIU/mL Free T4 (0.78-2.19) ng/dL SARS-CoV-2 (PCR) Negative (Negative) Imaging Data Chest x-ray: Radiologist[employer]: Launch?Image [address] [address] XRay Report Signed Patient: Agustín Valdez MR#: [id number] : 1940 Acct:[id number] Age/Sex: 81 / M Date of Service: 01/28/22 Loc: ED Accession Number: [id number] ?? Procedure: XR chest 1V Ordering Provider: Vaishali Grimes D.O. PROCEDURE:? XR CHEST 1V ? INDICATIONS:? slow HR, fall ? TECHNIQUE:? One view of the chest was acquired.? ? COMPARISON:? Merged With [facility], CT, CT CHEST WO CON, 01/28/2022, 23:03.? Merged With [facility], CR, XR CHEST 2V, 08/12/2019, 10:51. ? FINDINGS:? ? Surgical changes and devices:? Postsurgical changes are redemonstrated in the mediastinum. ? Lungs and pleura:? There is a moderate left pleural effusion with left basilar opacities consistent with compressive atelectasis or consolidation.? No definite pneumothorax.? Right lung demonstrates medial opacities inferiorly suggestive atelectasis.? ? Mediastinum:? Heart size is enlarged. ? Bones and chest wall:? No displaced fractures identified.? No suspicious bony lesions.? Overlying soft tissues appear unremarkable.? ? IMPRESSION:? ? 1. Moderate left pleural effusion with left basilar consolidation or atelectasis. ? 2. No definite pneumothorax. ? 3. No discrete displaced fractures. ? 4. Medial right basilar opacities likely represent atelectasis.? ? ? Dictated by: Juan M Gtz M.D. on 01/28/2022 at 23:19 ? ? Approved by: Juan M Gtz M.D. on 01/28/2022 at 23:22?? CT scan - chest: Radiologist's [employer]on: Launch?Image [address] [address] [address] Scan Report Signed Patient: Agustín Valdez MR#: [id number] : 1940 Acct:[id number] Age/Sex: 81 / M Date of Service: 01/28/22 Loc: ED Accession Number: [id number] ?? Procedure: CT chest wo con Ordering Provider: Vaishali Grimes D.O. PROCEDURE:? CT CHEST WO CON ? INDICATIONS:? L effusion ? TECHNIQUE: Noncontrast 5 mm thick sections acquired from the pulmonary apices to the posterior costophrenic angles.? 1 mm lung window, 5 mm thick coronal and sagittal and 7 mm axial MIP reformats were then acquired.? For radiation dose reduction, the following was used:? automated exposure control, adjustment of mA and/or kV according to patient size.? ? COMPARISON:? Merged With [facility], MR, MR LUMBAR SPINE WO CON, 04/30/2021, 17:46.? Merged With [facility], CR, XR CHEST 1V, 01/28/2022, 22:34. ? FINDINGS:? Image quality:? There is mild motion artifact.? ? Lungs and pleura:? There is a moderate left pleural effusion with associated compressive atelectasis of the majority of the left lower lobe as well as posterior regions of the left upper lobe.? An underlying mass within the left lower lobe or atelectatic portions of the left upper lobe cannot be excluded.? Multiple small clustered pulmonary nodules are demonstrated within the left upper lobe with areas of mucous plugging on the right, multiple clustered pulmonary nodules are also demonstrated within the lungs predominantly within the right upper and middle lobes areas of associated mucous plugging.? There is a small right pleural effusion mild compressive atelectasis also demonstrated in the right base.? The trachea and central airways appear patent. ? Mediastinum:? Heart size is enlarged.? There are postsurgical changes consistent with prior CABG.? No pericardial effusion.? Thoracic aorta and central pulmonary arteries are normal in size.? There a few prominent mediastinal lymph nodes measuring to 1 cm in short axis. Esophagus is normal in caliber.? There is a small hiatal hernia.? ? Bones and chest wall:? No suspicious bony lesions.? No vertebral body compression fractures.? No axillary or supraclavicular adenopathy by size criteria.? Thyroid gland demonstrates no discrete nodules.? ? Abdomen:? Visualized upper abdominal solid organs and bowel loops appear normal in the absence of contrast.? ? IMPRESSION:? ? 1. Moderate left pleural effusion associated compressive atelectasis involving majority of the left lower lobe and posterior regions of the left upper lobe.? Underlying mass within the atelectatic lungs cannot be excluded. ? 2. Multiple small bilateral clustered pulmonary nodules with associated areas of mucous plugging.? The findings likely represent an infectious or inflammatory process.? Short-term follow-up is recommended to demonstrate resolution following appropriate therapy. ? 3. Prominent mediastinal lymph nodes measuring up to 1 cm are nonspecific and may be reactive.? ? ? Dictated by: Juan M Gtz M.D. on 01/28/2022 at 23:27 ? ? Approved by: Juan M Gtz M.D. on 01/28/2022 at 23:34? ECG Data Attestation: I personally reviewed and interpreted this ECG as follows: Prior ECG tracings: available for review Interpretation: Ventricular rhythm, rate of 34 QRS of 142 QTC of 300. No acute ST elevation appreciated. No depression. Patient has prior 12/31/2009 that had sinus rhythm at 61. MDM Narrative Medical decision making narrative: This is an 81-year-old male who comes in with complaint of ground level fall with lift assist found to be in a heart rate in the mid to low 30s. Patient is not particularly symptomatic he denies chest pain shortness of breath or dizziness currently. It is quite difficult to evaluate if patient has P waves he has a wide appearing rhythm which I suspect is likely ventricular or idioventricular right bundle branch block. Patient in 2009 had normal sinus rhythm and pulses 50s to 60s. He is on amlodipine and metoprolol which could potentially be contributing, cannot rule out 3rd degree heart block. Discussed with cardiology who recommends observation, holding beta-emely and calcium channel emely and transfer if patient requires emergent intervention. It is noted they do not have electrophysiology available till Monday so this would be either [place] or [place] as the closest facilities. Patient does have a pleural effusion which actually appears present in 2019 on all L-spine MRI, there cannot exclude underlying mass mucous plugging patient does have some changes associated with mucus plugging on imaging which was further evaluated w ith CT chest. Patient has mild anemia, macrocytosis with platelets of 129, patient's creatinine is 2.480 is a prior 6 years ago that was 2.2, BUN slightly elevated with normal electrolytes potassium of 5.1. Mag slightly elevated 2.4 patient is receiving fluids. CK MB is elevated at 13, total CK is 248 with negative troponin BNP of 2900. TSH i 5.1 with free T4 of 1.4. COVID swab is negative. Code status was clarified with patient and and he is full code plan for pacing and aggressive intervention. They are aware that if patient heart rate continues to lower he will need pacing and transfer and this could be potentially deadly or fatal. We also discussed restrictions to fully evaluate his rhythm secondary to artifact with no clear cause. Have made multiple attempts to adjust telemetry, monitor, wires and EKGs. Case discusssed with Dr Styles who accepts for admission. We did discuss if patient does not improve in requires transfer this weekend trip physiology is not available at [facility] and would need transfer elsewhere. Discharge Plan Departure Patient Disposition: Admitted As Inpatient Clinical Impression: Bradycardia, Fall, Pleural effusion Admit Date/Time: 01/29/22 00:37 Admit Provider: Jose Styles
[2022-01-28] MEDS: ATROPINE 1 MG/10 ML SYRINGE 0.5 MG IV (22:25)
[2022-01-28] MEDS: SODIUM CHLORIDE 0.9% 1,000 ML 150 ML IV (22:40)
[2022-01-28 22:42] LABS: Add Manual Diff / Slide Review NO; Basophils Absolute Auto 0 /uL (0-100); Basophils Percent Auto 0.5 % (0-2); Eosinophils Absolute Auto 100 /uL (0-450); Eosinophils Percent Auto 1.2 % (2-4); Hematocrit 36.2 % (41-53); Hemoglobin 12.2 g/dL (13.5-17.5); Lymphocytes Absolute Auto 1000 /uL (1100-4500); Lymphocytes Percent Auto 14.6 % (25-40); Mean Corpuscular HGB Conc 33.8 % (30-36); Mean Corpuscular Hemoglobin 35.2 PG (26-34); Mean Corpuscular Volume 104.3 fL (80-100); Monocytes Absolute Auto 700 /uL (0-900); Monocytes Percent Auto 10.4 % (3-14); Neutrophils Absolute Auto 5200 /uL (1500-7000); Neutrophils Percent Auto 73.3 % (50-75); Platelet Count 129 X10^3/uL (150-400); Red Blood Cell Count 3.47 X10^6/uL (4.5-5.9); Red Cell Distribution Width 16.4 % (11.6-14.8); White Blood Cell Count 7.1 X10^3/uL (4.5-11.0)
[2022-01-28 22:48] LABS: Blood Urea Nitrogen 47 mg/dL (9-20); Calcium 8.9 mg/dL (8.4-10.2); Carbon Dioxide 25 mmol/L (22-32); Chloride 106 mmol/L (98-107); Creatine Kinase 248 U/L (55-170); Estimated Glomerular Filt Rate 25.1 mL/min (>60); Glucose 133 mg/dL (80-110); HEMOLYSIS 21 (0-50); Magnesium 2.4 mg/dL (1.6-2.3); Potassium 5.1 mmol/L (3.4-5.1); Sodium 139 mmol/L (137-145)
[2022-01-28 22:54] LABS: INR 1.2 (0.9-1.3)
--- NOTE | 2022-01-28 22:55 | DI.CT.S_ITS ---
PROCEDURE: CT CHEST WO CON INDICATIONS: L effusion TECHNIQUE: Noncontrast 5 mm thick sections acquired from the pulmonary apices to the posterior costophrenic angles. 1 mm lung window, 5 mm thick coronal and sagittal and 7 mm axial MIP reformats were then acquired. For radiation dose reduction, the following was used: automated exposure control, adjustment of mA and/or kV according to patient size. COMPARISON: [facility], MR, MR LUMBAR SPINE WO CON, 04/30/2021, 17:46. [facility], CR, XR CHEST 1V, 01/28/2022, 22:34. FINDINGS: Image quality: There is mild motion artifact. Lungs and pleura: There is a moderate left pleural effusion with associated compressive atelectasis of the majority of the left lower lobe as well as posterior regions of the left upper lobe. An underlying mass within the left lower lobe or atelectatic portions of the left upper lobe cannot be excluded. Multiple small clustered pulmonary nodules are demonstrated within the left upper lobe with areas of mucous plugging on the right, multiple clustered pulmonary nodules are also demonstrated within the lungs predominantly within the right upper and middle lobes areas of associated mucous plugging. There is a small right pleural effusion mild compressive atelectasis also demonstrated in the right base. The trachea and central airways appear patent. Mediastinum: Heart size is enlarged. There are postsurgical changes consistent with prior CABG. No pericardial effusion. Thoracic aorta and central pulmonary arteries are normal in size. There a few prominent mediastinal lymph nodes measuring to 1 cm in short axis. Esophagus is normal in caliber. There is a small hiatal hernia. Bones and chest wall: No suspicious bony lesions. No vertebral body compression fractures. No axillary or supraclavicular adenopathy by size criteria. Thyroid gland demonstrates no discrete nodules. Abdomen: Visualized upper abdominal solid organs and bowel loops appear normal in the absence of contrast. IMPRESSION: 1. Moderate left pleural effusion associated compressive atelectasis involving majority of the left lower lobe and posterior regions of the left upper lobe. Underlying mass within the atelectatic lungs cannot be excluded. 2. Multiple small bilateral clustered pulmonary nodules with associated areas of mucous plugging. The findings likely represent an infectious or inflammatory process. Short-term follow-up is recommended to demonstrate resolution following appropriate therapy. 3. Prominent mediastinal lymph nodes measuring up to 1 cm are nonspecific and may be reactive. Dictated by: Juan M Gtz M.D. on 01/28/2022 at 23:27 Approved by: Juan M Gtz M.D. on 01/28/2022 at 23:34
[2022-01-28 22:57] LABS: PTT Partial Thromboplastin Tim 38 SECONDS (26.4-36.2)
[2022-01-28 23:00] LABS: Troponin I < 0.012 ng/mL (0.01-0.034)
[2022-01-28 23:03] LABS: COVID19 -Nasal RAPID Negative (Negative)
[2022-01-28 23:03] LABS: CKMB % Relative Index 5.2 % (1.5-5.0)
[2022-01-28 23:30] LABS: Thyroid Stimulating Hormone 5.19 uIU/mL (0.47-4.68)
[2022-01-28 23:48] LABS: NT-proBNP (BNP-Adult 18+) 2950 pg/mL (<450)
[2022-01-29] VITALS (74 sets, daily range): BP systolic 94–124; BP diastolic 50–83; PULSE 31–114; RESP 14–45; TEMP 36–36.4; O2SAT 91–99; BMI 31.4
[2022-01-29 04:07] LABS: Troponin I < 0.012 ng/mL (0.01-0.034)
--- NOTE | 2022-01-29 09:57 | PM.HP.1 ---
History of Present Illness History of Present Illness Date Patient Seen: 01/29/22 Time Patient Seen: 09:57 Date of Onset of Symptoms: 01/28/22 Chief complaint: slow heart rate Narrative: This is a 81-year-old male who presented to the emergency department with complaint of ground level fall.? Patient states he was using his walker when he just sort of started to give way got stuck between 2 objects furniture did not have a true fall more semicontrolled descent no LOC.? EMS was contacted for lift assist and noted patient's heart rate was in the 30s with a low at 28.? Systolic pressure was around 106.? Patient family states that he had worsening fatigue symptoms about 2 weeks.? Unclear if he was seen for this.? He is at his normal baseline mentation according to patient and family.? Patient denies any pain, he denies headache, no neck or back pain, no chest pain or shortness of breath.? No passing out.? He denies any nausea or vomiting.? He denies any new GI or urinary symptoms.? He is unsure if he has been told he has a low heart rate in the past.? He is on amlodipine and metoprolol, rosuvastatin and aspirin 81 mg with prn albuterol for nebulous breathing problem.? Patient has had a prior CABG.? He does state that he is full code if his heart were to stop.? He is a former smoker.? His primary care is Dr. Pope lives at home independently with his . He is feeling okay this morning but looks pale and tired. He is not very hungry. Patient History Medical History Arthritis BPH w urinary obs/LUTS Chest pain Elevated PSA High blood pressure Incontinence of urine Osteoarthritis Surgical History Hx of appendectomy Previous back surgery Total knee replacement status Family & Social History Family History Father Stroke Coronary artery disease Diabetes mellitus Father Cancer Eczema Social History: household members spouse Safety & Behavioral: Feels Safe in Current Yes Environment Been Physically Hurt or No Threatened By a Person Tobacco & Substance use: Smoking Status Former smoker alcohol intake current Meds Home Medications and Allergies Home Medications Medication Instructions Recorded Confirmed Type Enalapril Maleate (Vasotec) 20 mg PO BID #0 12/31/09 12/28/21 History Loperamide Hydrochloride 2 mg PO PRN #0 12/31/09 12/28/21 History (Loperamide) Metoprolol Tartrate (Lopressor) 100 mg PO BID #0 12/31/09 12/28/21 History [CIALIS] 20 mg PO PRN #0 12/31/09 12/28/21 History aspirin 81 mg tablet,delayed 162 mg PO DAILY 05/24/19 12/28/21 History release (Aspir-) amlodipine 10 mg tablet 10 mg PO DAILY 08/28/20 12/28/21 History furosemide 20 mg tablet (Lasix) 10 mg PO QAM 08/28/20 12/28/21 History loratadine 10 mg capsule (Claritin 10 mg PO DAILY 08/28/20 12/28/21 History Liqui-Gel) omeprazole 10 mg capsule,delayed 10 mg PO DAILY 08/28/20 12/28/21 History release rosuvastatin 40 mg sprinkle capsule 40 mg PO DAILY 08/28/20 12/28/21 History tolterodine 4 mg capsule,extended 4 mg PO DAILY #90 cap 08/31/21 12/28/21 Rx release 24 hr ciprofloxacin HCl 500 mg tablet 500 mg PO BID #6 tab 12/24/21 12/28/21 Rx Allergies Allergy/AdvReac Type Severity Reaction Status Date / Time No Known Drug Allergies Allergy Verified 12/28/21 13:39 Review of Systems Review of Systems Narrative: all systems reviewed and negative except as otherwise documented in HPI Exam Vital Signs (past 8 hours): - 01/29/22 02:00 01/29/22 02:16 01/29/22 02:30 Pulse Rate 33 L 33 L 33 L Respiratory Rate 15 16 18 Blood Pressure 108/55 L 106/52 L 109/56 L Pulse Oximetry 93 95 94 01/29/22 02:46 01/29/22 03:00 01/29/22 03:01 Pulse Rate 32 L 33 L 33 L Respiratory Rate 16 25 H 22 Blood Pressure 106/55 L 111/56 L Pulse Oximetry 94 93 95 01/29/22 03:16 01/29/22 03:30 01/29/22 03:31 Pulse Rate 33 L 33 L 33 L Respiratory Rate 16 17 18 Blood Pressure 119/55 L 111/56 L Pulse Oximetry 94 94 95 Oxygen Delivery Method Room Air Narrative Exam Narrative: pale elder lying in bed Const General: frail appearing [facility] Head: normocephalic and atraumatic Neck Neck: normal visual inspection and full ROM Resp Auscultation: clear to auscultation bilaterally Cardio Other: decreased rate normal rhythm GI Palpation: soft Auscultation: normal bowel sounds Skin General: no rashes or lesions noted Neuro General: patient alert, patient awake and oriented (person city but not day of week or facility) Extrem General: full ROM and edema (3/4+ up to buttocks bilaterally) Psych Speech and Movement: delayed speech Mood: congruent mood Objective Labs Result Diagrams: 01/28/22 22:25 01/28/22 22:25 Labs: Laboratory Results - last 24 hr 01/28/22 01/28/22 01/28/22 22:25 22:25 22:25 WBC 7.1 RBC 3.47 L Hgb 12.2 L Hct 36.2 L MCV 104.3 H MCH 35.2 H MCHC 33.8 RDW 16.4 H Plt Count 129 L Neut % (Auto) 73.3 Lymph % (Auto) 14.6 L [place] % (Auto) 10.4 Eos % (Auto) 1.2 L Baso % (Auto) 0.5 Neut # (Auto) 5200 Lymph # (Auto) 1000 L [place] # (Auto) 700 Eos # (Auto) 100 Baso # (Auto) 0 PT 13.0 H INR 1.2 APTT 38 H Sodium 139 Potassium 5.1 Chloride 106 Carbon Dioxide 25 BUN 47 H Creatinine 2.48 H Estimated GFR 25.1 L BUN/Creatinine Ratio 19.0 Glucose 133 H Calcium 8.9 Magnesium 2.4 H Total Creatine Kinase 248 H CK-MB (CK-2) 13.00 H CK-MB (CK-2) Rel Index 5.2 H Troponin I < 0.012 NT-Pro-B Natriuret Pep TSH Free T4 SARS-CoV-2 (PCR) 01/28/22 01/28/22 01/28/22 22:25 22:25 22:35 WBC RBC Hgb Hct MCV MCH MCHC RDW Plt Count Neut % (Auto) Lymph % (Auto) [place] % (Auto) Eos % (Auto) Baso % (Auto) Neut # (Auto) Lymph # (Auto) [place] # (Auto) Eos # (Auto) Baso # (Auto) PT INR APTT Sodium Potassium Chloride Carbon Dioxide BUN Creatinine Estimated GFR BUN/Creatinine Ratio Glucose Calcium Magnesium Total Creatine Kinase CK-MB (CK-2) CK-MB (CK-2) Rel Index Troponin I NT-Pro-B Natriuret Pep 2950 H TSH 5.19 H Free T4 1.40 SARS-CoV-2 (PCR) 01/28/22 01/29/22 22:45 03:35 WBC RBC Hgb Hct MCV MCH MCHC RDW Plt Count Neut % (Auto) Lymph % (Auto) [place] % (Auto) Eos % (Auto) Baso % (Auto) Neut # (Auto) Lymph # (Auto) [place] # (Auto) Eos # (Auto) Baso # (Auto) PT INR APTT Sodium Potassium Chloride Carbon Dioxide BUN Creatinine Estimated GFR BUN/Creatinine Ratio Glucose Calcium Magnesium Total Creatine Kinase CK-MB (CK-2) CK-MB (CK-2) Rel Index Troponin I < 0.012 NT-Pro-B Natriuret Pep TSH Free T4 SARS-CoV-2 (PCR) Negative Assessment & Plan Assessment & Plan narrative: #acute bradycardia s /p ground level fall without LOC #hx of hypertension on beta blockers one dose of atropine given last night. Holding home metoprolol (tartrate 100 bid) and amlodipine for now. Feeling tentatively a bit better. Will admit for cardiac monitoring. Cardiac electrophysiology not available at [facility] until Monday if he requires pacing will need to go to [facility] or [facility]. #CHF without exacerbation diastolic chronic present on admission profound pitting edema noted with elevated BNP, normal troponins. #CKD 4 complicates any plan for diuresis I do want to take some of the strain off his heart will track daily weights and go for some gentle diuresis he reports frequent but possible urination without hernandez #shortness of breath, intermittent prn duonebs may represent chf sxs when present #L hallux toenail avulsion partial patient stubbed toe during fall, cleaned it off at home with soap and water applied bandage looks ok monitor #chronic L lower pulmonary effusion with LLL atelectasis noted on 2019 scan appears chronic. RLL costadiaphragmatic angle is sharp. no crackles on auscultation satting ok on RA. monitor. Code: full Diet: heart healthy MDM: [place] [phone] DVT: lovenox encourage mobilization to chair Time Spent With Patient Critical Care time: I spent a total of [] minutes of critical care time on this patient's care today; this time is exclusive of procedural time.
[2022-01-29] MEDS: ATORVASTATIN 20 MG TABLET 80 MG PO (11:37)
[2022-01-29] MEDS: FUROSEMIDE 20 MG/2 ML VIAL IV (11:38)
--- NOTE | 2022-01-29 13:21 | PT-IP ANOTE ---
pt not on the acute floor yet to do PT eval
--- NOTE | 2022-01-29 14:14 | PM.CN.EICU ---
History of Present Illness Consult details Chief complaint: slow heart rate :: This patient was seen via real time interactive two-way audiovisual telecommunication. Narrative: Patient is a 81 year old male with history of hypertension, osteoarthritis who is admitted to ICU for bradycardia. Per report, patient sustained a ground level fall and no loss of consciouness and EMS callled for lift assist. At the scene, he is noted to have HR ~30s and brought to the ER for further evaluation. In ER, HR remains in the 30s and received a dose of atropine with no improvement. Patient is on home metoprolol. No reported dizziness, chest pain, SOB, or N/V. CT chest showed moderate left pleural effusion. Cardiology consulted and admitted to ICU for further management. In ICU, HR remains in the 30s with SBP ~100s. Patient is a asymptomatic and reports no complaints. Atropine placed at bedside with pacer pads. [facility] Medical History Arthritis BPH w urinary obs/LUTS Chest pain Elevated PSA High blood pressure Incontinence of urine Osteoarthritis Surgical History Hx of appendectomy Previous back surgery Total knee replacement status Family History Father Stroke Coronary artery disease Diabetes mellitus Father Cancer Eczema Social History marital status: number of children: 4 household members: spouse Smoking Status: Former smoker alcohol intake: current caffeine: Yes Current Medications Current Medications Medications: Home Medications Enalapril Maleate (Vasotec) 20 mg PO BID #0 12/31/09 [History Confirmed 12/28/21] Loperamide Hydrochloride (Loperamide) 2 mg PO PRN #0 12/31/09 [History Confirmed 12/28/21] Metoprolol Tartrate (Lopressor) 100 mg PO BID #0 12/31/09 [History Confirmed 12/28/21] [CIALIS] 20 mg PO PRN #0 12/31/09 [History Confirmed 12/28/21] aspirin 81 mg tablet,delayed release (Aspir-) 162 mg PO DAILY 05/24/19 [History Confirmed 12/28/21] amlodipine 10 mg tablet 10 mg PO DAILY 08/28/20 [History Confirmed 12/28/21] furosemide 20 mg tablet (Lasix) 10 mg PO QAM 08/28/20 [History Confirmed 12/28/21] loratadine 10 mg capsule (Claritin Liqui-Gel) 10 mg PO DAILY 08/28/20 [History Confirmed 12/28/21] omeprazole 10 mg capsule,delayed release 10 mg PO DAILY 08/28/20 [History Confirmed 12/28/21] rosuvastatin 40 mg sprinkle capsule 40 mg PO DAILY 08/28/20 [History Confirmed 12/28/21] tolterodine 4 mg capsule,extended release 24 hr 4 mg PO DAILY #90 cap 08/31/21 [Rx Confirmed 12/28/21] ciprofloxacin HCl 500 mg tablet 500 mg PO BID #6 tab 12/24/21 [Rx Confirmed 12/28/21] Visit Medications (administered) Generic Name Dose Route Start Last Admin Trade Name Freq PRN Reason Stop Dose Admin Atorvastatin Calcium 80 mg 01/29/22 11:00 01/29/22 11:37 Atorvastatin 20 Mg Tablet PO 80 mg DAILY GEORGETTE Administration Furosemide 20 mg 01/29/22 11:00 01/29/22 11:38 Furosemide 20 Mg/2 Ml Vial IV 20 mg DAILY GEORGETTE Administration Exam Vital Signs (past 8 hours): - 01/29/22 07:00 01/29/22 07:16 01/29/22 07:30 Temperature Pulse Rate 37 L 39 L 40 L Respiratory Rate 16 16 23 Blood Pressure 106/55 L 108/53 L Pulse Oximetry 95 95 95 01/29/22 07:45 01/29/22 08:00 01/29/22 08:01 Temperature Pulse Rate 41 L 43 L 42 L Respiratory Rate 21 20 19 Blood Pressure 109/58 L 114/59 L Pulse Oximetry 96 95 95 01/29/22 08:15 01/29/22 08:30 01/29/22 08:31 Temperature Pulse Rate 43 L 44 L 44 L Respiratory Rate 18 16 17 Blood Pressure 120/83 108/56 L Pulse Oximetry 01/29/22 08:45 01/29/22 09:00 01/29/22 09:15 Temperature Pulse Rate 45 L 45 L 46 L Respiratory Rate 17 19 19 Blood Pressure 113/56 L 110/59 L 112/56 L Pulse Oximetry 01/29/22 09:30 01/29/22 09:45 01/29/22 10:00 Temperature Pulse Rate 42 L 42 L 45 L Respiratory Rate 15 15 19 Blood Pressure 105/54 L 94/50 L Pulse Oximetry 01/29/22 10:01 01/29/22 10:16 01/29/22 10:30 Temperature Pulse Rate 45 L 44 L 47 L Respiratory Rate 26 H 33 H 28 H Blood Pressure 113/61 108/52 L 109/54 L Pulse Oximetry 01/29/22 10:46 01/29/22 11:00 01/29/22 11:15 Temperature Pulse Rate 43 L 39 L 34 L Respiratory Rate 18 17 16 Blood Pressure 104/53 L 105/52 L 100/54 L Pulse Oximetry 01/29/22 11:30 01/29/22 11:31 01/29/22 11:46 Temperature Pulse Rate 44 L 43 L 44 L Respiratory Rate 17 16 20 Blood Pressure 105/53 L 110/53 L Pulse Oximetry 01/29/22 12:00 01/29/22 12:15 01/29/22 12:31 Temperature Pulse Rate 46 L 46 L Respiratory Rate 19 20 Blood Pressure 114/55 L 124/58 L 107/61 Pulse Oximetry 96 95 01/29/22 13:54 Temperature 97.6 F Pulse Rate 49 L Respiratory Rate 24 Blood Pressure 106/52 L Pulse Oximetry 92 Oxygen Delivery Method Room Air Oxygen Flow Rate 0 Objective Labs Result Diagrams: 01/28/22 22:25 01/28/22 22:25 Labs: Laboratory Results - last 24 hr 01/28/22 01/28/22 01/28/22 22:25 22:25 22:25 WBC 7.1 RBC 3.47 L Hgb 12.2 L Hct 36.2 L MCV 104.3 H MCH 35.2 H MCHC 33.8 RDW 16.4 H Plt Count 129 L Neut % (Auto) 73.3 Lymph % (Auto) 14.6 L [place] % (Auto) 10.4 Eos % (Auto) 1.2 L Baso % (Auto) 0.5 Neut # (Auto) 5200 Lymph # (Auto) 1000 L [place] # (Auto) 700 Eos # (Auto) 100 Baso # (Auto) 0 PT 13.0 H INR 1.2 APTT 38 H Sodium 139 Potassium 5.1 Chloride 106 Carbon Dioxide 25 BUN 47 H Creatinine 2.48 H Estimated GFR 25.1 L BUN/Creatinine Ratio 19.0 Glucose 133 H Calcium 8.9 Magnesium 2.4 H Total Creatine Kinase 248 H CK-MB (CK-2) 13.00 H CK-MB (CK-2) Rel Index 5.2 H Troponin I < 0.012 NT-Pro-B Natriuret Pep TSH Free T4 SARS-CoV-2 (PCR) 01/28/22 01/28/22 01/28/22 22:25 22:25 22:35 WBC RBC Hgb Hct MCV MCH MCHC RDW Plt Count Neut % (Auto) Lymph % (Auto) [place] % (Auto) Eos % (Auto) Baso % (Auto) Neut # (Auto) Lymph # (Auto) [place] # (Auto) Eos # (Auto) Baso # (Auto) PT INR APTT Sodium Potassium Chloride Carbon Dioxide BUN Creatinine Estimated GFR BUN/Creatinine Ratio Glucose Calcium Magnesium Total Creatine Kinase CK-MB (CK-2) CK-MB (CK-2) Rel Index Troponin I NT-Pro-B Natriuret Pep 2950 H TSH 5.19 H Free T4 1.40 SARS-CoV-2 (PCR) 01/28/22 01/29/22 22:45 03:35 WBC RBC Hgb Hct MCV MCH MCHC RDW Plt Count Neut % (Auto) Lymph % (Auto) [place] % (Auto) Eos % (Auto) Baso % (Auto) Neut # (Auto) Lymph # (Auto) [place] # (Auto) Eos # (Auto) Baso # (Auto) PT INR APTT Sodium Potassium Chloride Carbon Dioxide BUN Creatinine Estimated GFR BUN/Creatinine Ratio Glucose Calcium Magnesium Total Creatine Kinase CK-MB (CK-2) CK-MB (CK-2) Rel Index Troponin I < 0.012 NT-Pro-B Natriuret Pep TSH Free T4 SARS-CoV-2 (PCR) Negative Assessment & Plan Assessment & Plan narrative: NEURO: # Near syncope -- Possible related to chronotropic insufficiency vs mechanical fall -- On fall precaution -- PT/OT consultation -- Bradycardia management as below RESP: -- On room air -- Encourage IS and OOB as tolerated CVS: # Bradycardia -- Possible related to beta emely vs sick sinus syndrome -- Agree with holding beta emely -- If symptomatic then recommend start dopamine infusion and transfer to tertiary care for TVP/PPM placement -- High lytes goal -- Normal TSH -- Atropine at bedside for HR <30 or symptomatic -- Cardiology consulted -- Check TTE -- Avoid all AV celena blocking agent (ie, beta emely, calcium channel emely, digoxin) # Hx of CABG -- Restart ASA and lipitor -- Monitor on telemetry # REUBEN vs CKD -- On lasix 20 mg IV daily -- Avoid nephrotoxin agents -- Monitor UOP -- Daily BMP ENDO: -- Goal BS < 180 D/w N. Time Spent With Patient Critical Care time: I spent a total of [] minutes of critical care time on this patient's care today; this time is exclusive of procedural time.
--- NOTE | 2022-01-29 14:20 | PC.NURSE ---
Addendum entered by Analisa Avelar R.N. 01/29/22 15:59: 1600: Pt to transfer to tertiary facility with cardiology services per Jennie Styles and Andria. Coordinator arranging. Original Note: 1345: Pt admitted to room 229 from ED via stretcher. Pt noted to have HR in 30s on telemetry,no P waves seen, rhythm irregular. STAT EKG obtained with undetermined rhythm. Tele grounds crew supervisor Dr Ayers updated, orders received to place pacing pads on patient and keep atropine at bedside for HR less than 30 or if pt exhibits overt symptoms of bradycardia. Dr Styles updated via telephone of above, states will be in to see patient shortly. Will continue to monitor.
--- NOTE | 2022-01-29 21:58 | PM.ICURNDS ---
- Date Patient Seen: 01/29/22 Time Patient Seen: 20:20 :: This patient was seen via real time interactive two-way audiovisual telecommunication. Note: 81 y.o. male w/ PMHx of HTN, CABG admitted after fall; found to have HR in 30s and REUBEN w/ eGFR 25. Received atropine w/o improvement. Outpt metoprolol held. Awaiting tx to center with cardiology. Troponin (-) x2. On camera, in AIVR w/ HR 50s. INTERVENTIONS: 1) Place PICC in case dopamine/epinephrine are needed RECOMMENDATIONS: 1) Discuss code status if not already done
[2022-01-30] VITALS (20 sets, daily range): BP systolic 99–130; BP diastolic 52–58; PULSE 30–43; RESP 15–29; TEMP 35.8–35.9; O2SAT 91–100
--- NOTE | 2022-01-30 03:45 | DI.RAD.S_ITS ---
PROCEDURE: XR CHEST 1V INDICATIONS: picc line placement TECHNIQUE: One view of the chest was acquired. COMPARISON: [facility], CT, CT CHEST WO CON, 01/28/2022, 23:03. [facility], CR, XR CHEST 2V, 08/12/2019, 10:51. [facility], CR, XR CHEST 1V, 01/28/2022, 22:34. FINDINGS: Surgical changes and devices: A right-sided PICC line is seen, with the tip overlying the inferior aspect of the superior vena cava, near the cavoatrial junction. Sternotomy wires are seen. An electronic device overlies the central inferior thorax. A defibrillator pad can be seen. Lungs and pleura: There is a moderate to large left-sided pleural effusion. Left lower lung opacity is seen. On this semiupright study, no pneumothorax is seen. Mild generalized interstitial prominence is seen, which is worse than on the prior examination. Mediastinum: Mediastinal contours appear normal. Heart size is moderately enlarged. Bones and chest wall: No suspicious bony lesions. Age-appropriate bony degenerative changes are seen. Overlying soft tissues appear unremarkable. IMPRESSION: The tip of the right-sided PICC line is seen overlying the inferior aspect of the superior vena cava, near the cavoatrial junction. Worsening interstitial prominence can be seen. Continued cardiomegaly and left-sided pleural effusion. Please correlate with patient presentation, physical examination findings, and laboratory values for congestive heart failure. Left lower lung opacity is seen, likely related to atelectasis. Note: No significant discrepancy from the preliminary report. Dictated by: Benedicto Perry M.D. on 01/30/2022 at 7:15 Approved by: Benedicto Perry M.D. on 01/30/2022 at 7:19
--- NOTE | 2022-01-30 05:56 | PC.NURSE ---
shift note: Pt's HR has been in the low 30's throughout the night, monitor shows junctional rhythm. BP in the 110's. Up to the BSC x2 during the night and noted to have very weak effort, unable to stand an pivot. PICC line placed at 0530 per contracted DI RN.
[2022-01-30 06:24] LABS: Hematocrit 29.5 % (41-53); Hemoglobin 9.9 g/dL (13.5-17.5); Mean Corpuscular HGB Conc 33.5 % (30-36); Mean Corpuscular Hemoglobin 35.1 PG (26-34); Mean Corpuscular Volume 104.9 fL (80-100); Platelet Count 86 X10^3/uL (150-400); Red Blood Cell Count 2.81 X10^6/uL (4.5-5.9); Red Cell Distribution Width 16.3 % (11.6-14.8); White Blood Cell Count 5.7 X10^3/uL (4.5-11.0)
[2022-01-30 06:26] LABS: Add Manual Diff / Slide Review YES
[2022-01-30 06:29] LABS: BUN Creatinine Ratio 19.4 (6-22); Blood Urea Nitrogen 48 mg/dL (9-20); Calcium 8.3 mg/dL (8.4-10.2); Carbon Dioxide 29 mmol/L (22-32); Chloride 109 mmol/L (98-107); Estimated Glomerular Filt Rate 25.3 mL/min (>60); Glucose 92 mg/dL (80-110); HEMOLYSIS 48 (0-50); Potassium 4.5 mmol/L (3.4-5.1); Sodium 142 mmol/L (137-145)
[2022-01-30 06:58] LABS: Neutrophils Absolute Manual 3705 /uL (3000-5900); Total Cells Counted 100
[2022-01-30 06:59] LABS: Anisocytosis 1+; Macrocytosis 1+
--- NOTE | 2022-01-30 10:48 | PC.NURSE ---
Addendum entered by Mady Yarbrough R.N. 01/30/22 14:21: APcked up with [facility] transport for overlake @ 1400. Call into Ivette DEAN for report. Addendum entered by Mady Yarbrough R.N. 01/30/22 13:06: 1300-[facility] with accepting , Charmaine called with update. Pt with exertional wheezing noted during administration of Lasix IV. Incont of urine, more alert and conversive this assessment. Remains pale. Tele in place, pacer pads remain on patient. HR remains 32-35. Original Note: Am shift Pt is A/o x2, quite somnolent today. Im just tired at bedside and updated on plan of care. Lungs dim and clear, NC 1L. Edema x4 ext 2-3+ Elevated BLE to pillows. HR maintaining in the 30's, BP stable 110/62. Continue to work toward transfer to [facility] pending.
--- NOTE | 2022-01-30 11:13 | PM.PN.EICU ---
Subjective Subjective :: This patient was seen via real time interactive two-way audiovisual telecommunication. Current Medications Current Medications Medications: Home Medications Loperamide Hydrochloride (Loperamide) 2 mg PO PRN #0 12/31/09 [History Confirmed 12/28/21] Metoprolol Tartrate (Lopressor) 100 mg PO BID #0 12/31/09 [History Confirmed 01/30/22] [CIALIS] 20 mg PO PRN #0 12/31/09 [History Confirmed 12/28/21] aspirin 81 mg tablet,delayed release (Aspir-) 162 mg PO DAILY 05/24/19 [History Confirmed 01/30/22] amlodipine 10 mg tablet 5 mg PO DAILY 08/28/20 [History Confirmed 01/30/22] furosemide 20 mg tablet (Lasix) 10 mg PO QAM 08/28/20 [History Confirmed 12/28/21] loratadine 10 mg capsule (Claritin Liqui-Gel) 10 mg PO DAILY 08/28/20 [History Confirmed 01/30/22] omeprazole 10 mg capsule,delayed release 10 mg PO DAILY 08/28/20 [History Confirmed 01/30/22] rosuvastatin 40 mg sprinkle capsule 40 mg PO DAILY 08/28/20 [History Confirmed 12/28/21] tolterodine 4 mg capsule,extended release 24 hr 4 mg PO DAILY #90 cap 08/31/21 [Rx Confirmed 12/28/21] ciprofloxacin HCl 500 mg tablet 500 mg PO BID #6 tab 12/24/21 [Rx Confirmed 01/30/22] Visit Medications (administered) Generic Name Dose Route Start Last Admin Trade Name Panteraq PRN Reason Stop Dose Admin Atorvastatin Calcium 80 mg 01/29/22 11:00 01/29/22 11:37 Atorvastatin 20 Mg Tablet PO 80 mg DAILY GEORGETTE Administration Furosemide 20 mg 01/29/22 11:00 01/29/22 11:38 Furosemide 20 Mg/2 Ml Vial IV 20 mg DAILY GEORGETTE Administration Objective Labs Result Diagrams: 01/30/22 05:45 01/30/22 05:45 Labs: Laboratory Results - last 24 hr 01/29/22 01/30/22 01/30/22 13:45 05:45 05:45 WBC 5.7 RBC 2.81 L Hgb 9.9 L Hct 29.5 L MCV 104.9 H MCH 35.1 H MCHC 33.5 RDW 16.3 H Plt Count 86 L Neut % (Auto) Not Reportable Lymph % (Auto) Not Reportable [place] % (Auto) Not Reportable Eos % (Auto) Not Reportable Baso % (Auto) Not Reportable Lymph # (Auto) Not Reportable [place] # (Auto) Not Reportable Baso # (Auto) Not Reportable Total Counted 100 Seg Neutrophils % 64.0 Band Neutrophils % 1.0 L Lymphocytes % (Manual) 16.0 L Monocytes % (Manual) 15.0 H Eosinophils % (Manual) 3.0 Basophils % (Manual) 1.0 Neutrophils # (Manual) 3705 RBC Morphology See below Anisocytosis 1+ H Macrocytosis 1+ H Sodium 142 Potassium 4.5 Chloride 109 H Carbon Dioxide 29 BUN 48 H Creatinine 2.47 H Estimated GFR 25.3 L BUN/Creatinine Ratio 19.4 Glucose 92 Calcium 8.3 L Nasal Screen MRSA (PCR) Negative for mrsa Exam Vital Signs (past 8 hours): - 01/30/22 04:00 01/30/22 05:00 01/30/22 06:00 Temperature 96.6 F L Pulse Rate 33 L 33 L 34 L Respiratory Rate 17 15 15 Blood Pressure 130/57 L 99/53 L 117/57 L Pulse Oximetry 98 97 99 01/30/22 07:00 01/30/22 07:01 01/30/22 08:01 Temperature Pulse Rate 34 L 33 L Respiratory Rate 17 27 H Blood Pressure 114/57 L 104/52 L Pulse Oximetry 100 100 01/30/22 09:00 01/30/22 09:01 01/30/22 09:05 Temperature Pulse Rate 33 L 33 L Respiratory Rate 23 19 Blood Pressure 122/54 L Pulse Oximetry 97 97 01/30/22 09:08 Temperature Pulse Rate Respiratory Rate Blood Pressure Pulse Oximetry 93 Oxygen Delivery Method Nasal Cannula Oxygen Flow Rate 1 Quality TeleICU VTE Deep Vein Thrombosis/Pulmonary Embolism Present on Admission: No Assessment & Plan Assessment & Plan narrative: NEURO: # Near syncope -- Possible related to chronotropic insufficiency vs mechanical fall -- On fall precaution -- PT/OT consultation -- Bradycardia management as below RESP: -- On room air -- Encourage IS and OOB as tolerated CVS: # Bradycardia -- Possible related to beta emely vs sick sinus syndrome -- Off beta emely -- If symptomatic then recommend start dopamine infusion and transfer to tertiary care for TVP/PPM placement -- High lytes goal -- Normal TSH -- Atropine at bedside for HR <30 or symptomatic? -- Cardiology consulted -- Check TTE -- Avoid all AV celena blocking agent (ie, beta emely, calcium channel emely, digoxin) # Hx of CABG -- ASA and lipitor -- Monitor on telemetry? # REUBEN vs CKD -- On lasix 20 mg IV daily, Cr plateau -- Avoid nephrotoxin agents -- Monitor UOP -- Daily BMP ENDO: -- Goal BS < 180 Thrombocytopenia & anemia -- CBC Q8H x 2 -- Hold lovenox -- Check HIT and serotonine DVT ppx -- SCD D/w N. Time Spent With Patient Critical Care time: I spent a total of [] minutes of critical care time on this patient's care today; this time is exclusive of procedural time.
--- NOTE | 2022-01-30 11:28 | PT-IP ANOTE ---
Pt is persistently bradycardic with HR in the 30's. He is to be transferred for higher level of care to include cardiology. Will discharge PT orders.
[2022-01-30] MEDS: FUROSEMIDE 20 MG/2 ML VIAL IV (12:21)
[2022-01-30] MEDS: ASPIRIN EC 81 MG TABLET 162 MG PO (12:21)
[2022-01-30] MEDS: PANTOPRAZOLE DR 20 MG TABLET PO (12:21)
--- NOTE | 2022-01-30 12:27 | CM.DANOTE ---
DCP: Case received, EMR reviewed and met with patient. Spouse, Isa, was at bedside. Introduced self and role. Was able to obtain information regarding patient's baseline activity status at home prior to hospitalization. DCP assessment completed with information currently available. Patient is an 81 year old male who admitted yesterday morning to the care of the hospitalist team. PCP: Dr. Cárdenas. Payer: confirmed: Medicare/[employer] and [facility] sup. Patient came to the hospital via ambulance secondary to a fall resulting from increased weakness at home. Patient had been having increased falls at home. According to notes, patient had been using his walker, and ended up falling. EMS had been contacted, and his systolic BP was in the low 100s. Patient was noted to have acute bradycardia, and was given a dose of atropine. It was noted that patient would most likely need to go to higher level hospital for a pacemaker. Met with patient and spouse in the room. Patient alert, flat effect, not talkative. His heart rate was in the 30s. Spouse, Isa, had answered DC Planning questions. Patient no longer drives, he uses a FWW at home. Spouse indicated, he has had some falls at home, but this time, I couldn't get him up, and I knew that something was wrong. Dr. Styles is working on getting patient transferred to [facility] for a pacemaker. P: Patient will be transferred to [facility] via ambulance. Dr. Styles indicated, they will ensure that he is stable before they transport, patient is a full code. Kimberly Villarreal RN/Emergency Room Clinician Discharge Planning/Care Management CM Discharge Assessment Start: 01/30/22 12:24 Freq: Status: Active Protocol: Document 01/30/22 12:24 (Rec: 01/30/22 12:27 [id number]) Discharge Planning Assessment Assigned Fire Equipment Inspector Helper Kimberly Villarreal RN/Emergency Room Clinician Advance Directives? Yes: DPOA/LIVING WILL Advance Directives on File No History Provided By Patient,Family Member,Medical Record Prior Living Arrangements House Household Members spouse Type of transporation used prior to Relies on Others admit Independent with ADL's Yes Needs Assistance With Meal Prep,Home Chores / Shopping DME Already Rented / Owned FWW / Walker Barriers to Discharge No Discharge Plan Transfer to Higher Level of Care Transportation Arrangement ALS most likely Referrals Initiated None needed Whiteboard Updated in Patient Room with Yes name and ext. # of Fire Equipment Inspector Helper Review Status In Process Next Review Type Continued Stay Review
--- NOTE | 2022-01-30 12:34 | P.DS_ITS ---
History of Present Illness History of Present Illness Date Patient Seen: 01/30/22 Time Patient Seen: 10:00 Chief complaint: slow heart rate Narrative: This is a 81-year-old male who presented to the emergency department with complaint of ground level fall.? Patient states he was using his walker when he just sort of started to give way got stuck between 2 objects furniture did not have a true fall more semicontrolled descent no LOC.? EMS was contacted for lift assist and noted patient's heart rate was in the 30s with a low at 28.? Systolic pressure was around 106.? Patient family states that he had worsening fatigue symptoms about 2 weeks.? Unclear if he was seen for this.? He is at his normal baseline mentation according to patient and family.? Patient denies any pain, he denies headache, no neck or back pain, no chest pain or shortness of breath.? No passing out.? He denies any nausea or vomiting.? He denies any new GI or urinary symptoms.? He is unsure if he has been told he has a low heart rate in the past.? He is on amlodipine and metoprolol, rosuvastatin and aspirin 81 mg with prn albuterol for nebulous breathing problem.? Patient has had a prior CABG.? He does state that he is full code if his heart were to stop.? He is a former smoker.? His primary care is Dr. Pope lives at home independently with his . He is feeling okay this morning but looks pale and tired. He is not very hungry. Discharge Providers Provider Date of admission: 01/29/22 00:37 Discharge Date: 01/30/22 Primary care physician: Aristeo Cárdenas MD Consults: 01/29/22 10:29 Consult to Physical Therapy Evaluate & Treat Comment: Physician Instructions: Evaluate and Treat 01/29/22 20:26 Consult After Hours PICC Line RN Urgent Comment: need for poss dopamine drip Discharge provider: Jose Styles MD Summary Hospital Course Discharge Diagnosis: bradycardia at ventricular rate Hospital Course: No improvement in HR became clear he is ventricularly pacing he is perfusing but not enough for independent ambulation no P waves seen even with dicontinuation of metoprolol made arrangements for transfer for pacing I do not anticipate his condition improving otherwise Status at Discharge Overall status at discharge: patient is not back to baseline Exam Vital Signs (past 8 hours): - 01/30/22 05:00 01/30/22 06:00 01/30/22 07:00 Pulse Rate 33 L 34 L 34 L Respiratory Rate 15 15 17 Blood Pressure 99/53 L 117/57 L Pulse Oximetry 97 99 100 01/30/22 07:01 01/30/22 08:01 01/30/22 09:00 Pulse Rate 33 L 33 L Respiratory Rate 27 H 23 Blood Pressure 114/57 L 104/52 L Pulse Oximetry 100 97 01/30/22 09:01 01/30/22 09:05 01/30/22 09:08 Pulse Rate 33 L Respiratory Rate 19 Blood Pressure 122/54 L Pulse Oximetry 97 93 Oxygen Delivery Method Nasal Cannula Oxygen Flow Rate 1 Narrative Exam Narrative: sitting in bed watching TV Const Other: well nourished. pale. HENMT Head: normal to inspection, normocephalic and atraumatic Eyes General: appearance normal, both eyes and all related structures Neck Neck: normal visual inspection, full ROM, trachea midline and supple Resp Other: moving air well decreased lung sounds at LLL otherwise clear to ausculatation Cardio Other: slow irregular rate S1/S2 appreciated GI Other: soft nontender normal bowel sounds Skin Other: some mild bruising on UEs but no rashes or wounds Neuro General: patient alert, patient awake, patient oriented x3, moves all extremities and CN's II-XI intact bilaterally Extrem Other: pitting edema 3+ up to thighs bilaterally Psych Other: conversant but profoundly low energy Objective ECG Impression: bradycardia irregular no P waves Labs Result Diagrams: 01/30/22 05:45 01/30/22 05:45 Labs: Laboratory Results - last 24 hr 01/29/22 01/30/22 01/30/22 13:45 05:45 05:45 WBC 5.7 RBC 2.81 L Hgb 9.9 L Hct 29.5 L MCV 104.9 H MCH 35.1 H MCHC 33.5 RDW 16.3 H Plt Count 86 L Neut % (Auto) Not Reportable Lymph % (Auto) Not Reportable Stevens % (Auto) Not Reportable Eos % (Auto) Not Reportable Baso % (Auto) Not Reportable Lymph # (Auto) Not Reportable Stevens # (Auto) Not Reportable Baso # (Auto) Not Reportable Total Counted 100 Seg Neutrophils % 64.0 Band Neutrophils % 1.0 L Lymphocytes % (Manual) 16.0 L Monocytes % (Manual) 15.0 H Eosinophils % (Manual) 3.0 Basophils % (Manual) 1.0 Neutrophils # (Manual) 3705 RBC Morphology See below Anisocytosis 1+ H Macrocytosis 1+ H Sodium 142 Potassium 4.5 Chloride 109 H Carbon Dioxide 29 BUN 48 H Creatinine 2.47 H Estimated GFR 25.3 L BUN/Creatinine Ratio 19.4 Glucose 92 Calcium 8.3 L Nasal Screen MRSA (PCR) Negative for mrsa PFSH Medical History Arthritis BPH w urinary obs/LUTS Chest pain Elevated PSA High blood pressure Incontinence of urine Osteoarthritis Surgical History Hx of appendectomy Previous back surgery Total knee replacement status Family History Father Stroke Coronary artery disease Diabetes mellitus Father Cancer Eczema Social History marital status: number of children: 4 household members: spouse Smoking Status: Former smoker alcohol intake: current caffeine: Yes Discharge Assessment & Plan Assessment and Plan Assessment: #acute bradycardia at ventricular rate s/p ground level fall without LOC #hx of hypertension on beta blockers one dose of atropine given on admission, BP has generally been stable but heart rate has not improved with holding home BP meds including metorpolol 200mg/day and amlodipine. Given persistent condition will arrange for transfer for pacemaker. Pt's VSS are stable except HR and he should be stable for transfer via ambulance. #CHF without exacerbation diastolic chronic present on admission profound pitting edema noted with elevated BNP, normal troponins we have been gently diuresing with light lasix iv. 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 RLL costadiaphragmatic angle is sharp. no crackles on auscultation satting ok on RA. monitor. Dispo: transfer to [facility] for higher level of care PCP: Avi Code: full Diet: heart healthy MDM: [place] [phone] DVT: lovenox encourage mobilization to chair Discharge Plan Discharge Plan Other facility: [facility] Under care of provider: Dr. Noris Quintanilla Provider Discharge Comment: transferring for cardiology services unavailable here Discharge orders & Medications Discharge Orders: Discharge (Order); Ordered 01/30/22 Ordered By: Jose Styles Prescriptions: Continued omeprazole 10 mg capsule,delayed release(DR/EC) 10 mg PO DAILY 0RF rosuvastatin 40 mg capsule, sprinkle 40 mg PO DAILY 0RF aspirin [Aspir-81] 81 mg Tablet,Delayed Release (Dr/Ec) 162 mg PO DAILY 0RF Discontinued Metoprolol Tartrate (Lopressor) 100 mg PO BID Qty: 0 0RF [CIALIS] 20 mg PO PRN (Reason: Erectile Dysfunction) Qty: 0 0RF Loperamide Hydrochloride (Loperamide) 2 mg PO PRN (Reason: Diarrhea) Qty: 0 0RF amlodipine 10 mg tablet 5 mg PO DAILY 0RF loratadine [Claritin Liqui-Gel] 10 mg capsule 10 mg PO DAILY 0RF furosemide [Lasix] 20 mg tablet 10 mg PO QAM 0RF ciprofloxacin HCl 500 mg tablet 500 mg PO BID Qty: 6 0RF Rx Instructions: Please start the morning of 12/27/21 and take twice a day until bottle is empty. tolterodine 4 mg capsule,extended release 24hr 4 mg PO DAILY Qty: 90 3RF Rx Instructions: 1-2 daily Follow up/Referrals: Aristeo Cárdenas MD [Primary Care Provider] - Diet/Activity/Treatments Diet: Low-sodium Discharge Data Primary Care Provider: Aristeo Cárdenas Quality VTE Deep Vein Thrombosis/Pulmonary Embolism Present on Admission: No
== END 2022-01-30 14:24 | disposition short-term general hospital (02) | DRG 309 ==
LOC: ED 23:17 → AC 01-29 03:19 → ICU 01-29 13:31 → AC 01-31 08:13 → ICU 01-31 08:14
PROVIDERS: Admitting Provider Family Medicine; Emergency Provider Emergency Medicine; PCP Family Medicine; Referring Provider Emergency Medicine; Visit Provider Family Medicine
DX: R00.1 Bradycardia, unspecified (principal); I13.0 Hypertensive heart and chronic kidney disease with heart failure and stage 1 through stage 4 chronic kidney disease, or unspecified chronic kidney disease; I50.32 Chronic diastolic (congestive) heart failure; N18.4 Chronic kidney disease, stage 4 (severe); J90 Pleural effusion, not elsewhere classified; D69.6 Thrombocytopenia, unspecified; W18.30XA Fall on same level, unspecified, initial encounter; Z87.891 Personal history of nicotine dependence; Z20.822 Contact with and (suspected) exposure to COVID-19; Z95.1 Presence of aortocoronary bypass graft; D64.9 Anemia, unspecified
CPT/HCPCS: 36415; 71045; 71250; 80048; 82550; 82553; 83735; 83880; 84439; 84443; 84484; 85007; 85025; 85610; 85730; 87635; 87797; 93005; 93010; 96374; 99284; 99285; 99291; 99292; C9803; J0461; J1642; J1940